=== PATIENT | male | born 1935 | race Caucasian/White ===

== ENCOUNTER 2016-08-16 15:11 | Inpatient (IN) | payer OTHER ==
[~2016-08-16] VITALS: Ht 175.3 cm; Wt 58.0 kg
--- NOTE | 2016-08-16 16:22 | DIAGNOSTIC IMAGING REPORT ---
PROCEDURE: XR CHEST 2 VIEW INDICATION: SHORTNESS OF BREATH TECHNIQUE: PA and lateral views. COMPARISON: None. FINDINGS: New left lower lobe infiltrate and pleural effusion. Heart and mediastinum are normal. Thorax is normal. IMPRESSION: 1. New left lower lobe infiltrate and pleural effusion.
--- NOTE | 2016-08-16 17:18 | ED CLINICAL REPORT ---
Clinical Report - Physicians/Mid Levels [facility] [address] [place] [address] 08/16/2016 15:11 Patient: AILEEN CAMPBELL Time Seen: 15:22. Arrived- By private vehicle. Historian- patient and family. HISTORY OF PRESENT ILLNESS Chief Complaint: DYSPNEA and WEAKNESS. This started several weeks ago and is still present. It was gradual in onset and has been waxing/waning. At its maximum, severity described as moderate. When seen in the E.D., severity described as moderate. Modifying factors- worsened by movement. Relieved by rest. The patient has had fatigue and generalized weakness. Similar symptoms previously: Recent medical care: The patient was seen recently at another facility in a clinic. REVIEW OF SYSTEMS No fever, sore throat, sinus drainage, cough or difficulty breathing. No chest pain, abdominal pain, nausea, vomiting or diarrhea. No black stools, bloody stools, difficulty with urination, skin rash or back pain. No headache or blackouts. The patient has had moderate difficulty with ambulation. It has been associated with weakness in both legs. All systems otherwise negative, except as recorded above. PAST HISTORY Primary physician ([facility]). PROBLEMS: Back Pain. Hypertension. Hyperlipidemia. Osteoporosis. Emphysema. COPD - Chronic Obstructive Pulmonary Disease. Fx vertebrae. SURGERIES: Prostatectomy. Tonsillectomy & Adenoidectomy. No history of diabetes mellitus. Surgeries: Lung surgery (RUL wedge resection on 09/03/2013). Medications: Amlodipine Besy-Benazepril HCl Oral 5/10 mg, daily. AREDS 2 OPTH. Calcium. Fish Oil. HCTZ 25 mg q day. Potassium Chloride Oral 10 meq, daily. Pravachol Oral 20 mg, daily. Pravastatin Sodium Oral 20 mg, daily. Vitamin B-12 Oral. Vitamin D3. Advair Diskus Inhalation. Allergies: None. SOCIAL HISTORY Smoker- current status unknown. No alcohol use or drug use. ADDITIONAL NOTES The nursing notes have been reviewed. PHYSICAL EXAM Vital Signs: 08/16/2016 15:21 BP: 126/74. HR: 79. RR: 18. O2 saturation: 94%. Temp: 97.8 F. Appearance: Alert. Patient in mild distress. Eyes: Eyes normal inspection. No scleral icterus or pale conjunctivae. ENT: Dry mucous membranes present. No pharyngeal erythema or tonsillar exudate. Neck: Normal inspection. Neck supple. CVS: Normal heart rate and rhythm. Heart sounds normal. Pulses normal. Respiratory: No respiratory distress. Breath sounds normal. Abdomen: No visible injury. Soft and nontender. No mass. Back: Normal inspection. Skin: Skin warm and dry. Normal skin color. Abnormal skin turgor. Extremities: Extremities exhibit normal ROM. No lower extremity edema. Neuro: Oriented X 3. No motor deficit. LABS, X-RAYS, AND EKG EKG: EKG time: (16:28). Normal sinus rhythm. Rate: 70. Short MARILOU (with unusual p-wave axsis). RBBB. Nondiagnostic Q waves in lead V2. Non-specific ST segment / T wave abnormalities. The study has been interpreted contemporaneously by me. The EKG appears to be a good tracing. Chest X-ray: (IMPRESSION: 1. New left lower lobe infiltrate and pleural effusion.). Views: PA and lateral. Technique: good. The X-rays were interpreted contemporaneously by me. Laboratory Tests: UA-Culture if indicated: (STEPHANIA: 08/16/2016 16:00) ( MsgRcvd 08/16/2016 16:28) Final results Test Result Flag Units (Reference) URINE COLOR YELLOW URINE APPEARANCE CLEAR URINE GLUCOSE 3+ (NEGATIVE) URINE BILIRUBIN NEGATIVE (NEGATIVE) URINE KETONE NEGATIVE (NEGATIVE) URINE SPECIFIC GRAVITY 1.015 (1.010-1.030) URINE PH 6.0 (5.0-8.0) URINE PROTEIN NEGATIVE (NEGATIVE) URINE UROBILINOGEN 0.2 EU/dL (0.2-1.0) URINE NITRITE NEGATIVE (NEGATIVE) URINE BLOOD TRACE-INTACT (NEGATIVE) URINE LEUK ESTERASE NEGATIVE (NEGATIVE) URINE RBC 0-1 rbc/hpf (0-1) URINE WBC 0-1 wbc/hpf (0-1) URINE EPITHELIAL CELLS RARE EPI/hpf (0-5) URINE BACTERIA NONE SEEN (NONE SEEN) URINE COMMENT CULT NOT INDICATED URINE CULTURES ARE SET-UP BASED ON THE FOLLOWING CRITERIA:POSITIVE NITRITEPOSITIVE LEUKOCYTE ESTERASEGREATER THAN 10 WHITE BLOOD CELLSMODERATE (2+) OR GREATER BACTERIA CBC w Diff: (STEPHANIA: 08/16/2016 15:45) ( [facility] 08/16/2016 16:00) Final results Test Result Flag Units (Reference) WHITE BLOOD COUNT 9.5 K/uL (4.5-11.5) RED BLOOD COUNT 3.84 L M/uL (4.50-5.90) HEMOGLOBIN 12.6 L gm/dL (13.5-17.5) HEMATOCRIT 37.8 L % (41.0-53.0) MEAN CELL VOLUME 99 fL (80-100) MEAN CORPUSCULAR HGB 33 pg (26-34) MEAN CORPUSCULAR HGB CONC 33 g/dL (31-37) RED CELL DISTRIBUTION WIDTH 14.3 % (11.6-14.8) PLATELET COUNT 195 K/uL (150-400) NEUTROPHIL % 77.6 H % (50-75) LYMPH % 17.7 L % (25-40) MONO % 4.3 % (3-14) EOSINOPHIL % 0.1 % (0-4) BASOPHIL % 0.3 % (0-2) PT with INR: (STEPHANIA: 08/16/2016 15:45) ( [facility] 08/16/2016 16:22) Final results Test Result Flag Units (Reference) INR 1.2 (0.8-1.2) Low Intensity Therapy: INR 1.5-2.0 PT range 18.5-23.1Mod.Intensity Therapy: INR 2.0-3.0 PT range 23.1-31.5High Intensity Therapy: INR 2.5-3.5 PT range 27.4-35.5High Intensity Therapy 2: INR 3.0-4.0 PT range 31.5-39.3 BNP: (STEPHANIA: 08/16/2016 15:45) ( [facility] 08/16/2016 16:37) Final results Test Result Flag Units (Reference) B-TYPE NATRIURETIC PEPTIDE 344 H pg/ml (5-100) CHEM 13 PANEL: (STEPHANIA: 08/16/2016 15:45) ( MsgRcvd 08/16/2016 16:36) Final results Test Result Flag Units (Reference) GLUCOSE 411 H mg/dL (70-110) BUN 50 H mg/dL (7-18) CREATININE 1.5 H mg/dL (0.6-1.3) Estimated GFR 47.86 mL/min Estimated GFR- 58.01 mL/min Note: Persistent reduction over 3 months in eGFR<60 mL/min/1.73 m2 defines CKD. Patients with eGFR values>=60 mL/min/1.73 m2 may also have CKD if evidence ofpersistent proteinuria. Additional information may be foundat [email or web address].org. SODIUM 131 L mmol/L (136-145) POTASSIUM 4.2 mmol/L (3.5-5.1) CHLORIDE 96 L mmol/L (98-107) CARBON DIOXIDE 32 mmol/L (21-32) CALCIUM 12.8 *H mg/dL (8.5-10.1) CRITICAL RESULTS CALLEDCalled to GENEVIEVE MANCILLA,ER 08/16/16 1635Were 2 patient identifiers used? YWas the result read back? Y TOTAL PROTEIN 9.9 H g/dL (6.4-8.2) ALBUMIN 2.6 L g/dL (3.3-5.0) BILIRUBIN, TOTAL 0.3 mg/dL (0.0-1.0) ALKALINE PHOSPHATASE 55 U/L (46-116) AST (SGOT) 28 U/L (15-37) ALT (SGPT) 38 U/L (12-78) MAGNESIUM 2.1 mg/dL (1.8-2.4) AMYLASE 32 U/L (25-115) CPK 47 U/L (24-260) TROPONIN I <0.05 ng/mL (0.00-1.5) TROPONIN REFERENCE RANGE:<0.1 NEGATIVE0.1-1.5 INDETERMINANT>1.5 POSITIVE Rapid Influenza Screen: (STEPHANIA: 08/16/2016 15:45) ( MsgRcvd 08/16/2016 16:06) Final results SPECIMEN DESCRIPTION: [employer] SWAB Test Result Flag Units (Reference) RAPID INFLUENZA SCREEN DATE: 08/16/16 INFLUENZA A: NEGATIVE SCREEN FOR INFLUENZA A INFLUENZA B: NEGATIVE SCREEN FOR INFLUENZA B Type & Screen: (STEPHANIA: 08/16/2016 15:45) ( TngRcvd 08/16/2016 16:48) Final results Test Result Flag Units (Reference) PATIENT BLOOD TYPE A Positive Above is a corrected result. Previously reported on ( [facility] 08/16/2016 16:43) as: PATIENT BLOOD TYPE A Positive ANTIBODY SCREEN NEGATIVE . Pulse Oximetry: 08/16/2016 15:21 O2 saturation: 94%. (FIO2 - room air). Interpretation: hypoxemia. PROGRESS AND PROCEDURES Course of Care: Normal Saline 1 liter IVPB given. Azithromycin 500 mg PO given. Regular Insulin 8 units subQ given. Patient is stable. Physical exam findings are improved. Symptoms better. Discussed case with hospitalist, (Arnulfo call placed 17:30). Reviewed test results. Agreed upon treatment plan. Health care provider will see patient in ED. Patient/family counseled. Old ED records reviewed. Transition orders written. Disposition: Observation in Acute Care. Condition: stable and improved. CLINICAL IMPRESSION Moderate dehydration. 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 No coma. Moderate hypercalcemia. Mild hyponatremia. Possible bacterial pneumonia. Vital signs recorded and reviewed; empiric antibiotics given in the ED. (Electronically signed by Candido Peacock DO 08/16/2016 21:28)
--- NOTE | 2016-08-16 17:18 | ED NURSING NOTES ---
Clinical Report - Nurses [facility] [address] [place] [address] 08/16/2016 15:11 Patient: AILEEN CAMPBELL TRIAGE Triage time 15:21. Acuity: LEVEL 3. Chief Complaint: (weakness). 15:08/16/16. 15:08/16/16. Alert. No acute distress. ESHA COMA SCORE: [place] Coma Scale: 15- eyes open spontaneously (4); best verbal response- oriented x 4 (5); best motor response- obeys commands (6). --15:32 Chuy Cruz R.N. 15:08/16/16. BP: 126/74. HR: 79. RR: 18. O2 saturation: 94% on nasal cannula at 2 liters/minute. Temp: 97.8 F (oral). Additional comments: On oxygen from home. --15:32 Chuy Cruz R.N. Weight: 55.3 kg stated. Height/Length: 69 inches Per Patient. BMI: 18. --15:22 Chuy Cruz R.N. Medications Advair Diskus Inhalation. --15:24 Chuy Cruz R.N. Amlodipine Besy-Benazepril HCl Oral 5/10 mg, daily. AREDS 2 OPTH. Calcium. Fish Oil. HCTZ 25 mg q day. Potassium Chloride Oral 10 meq, daily. Pravachol Oral 20 mg, daily. Pravastatin Sodium Oral 20 mg, daily. Vitamin B-12 Oral. Vitamin D3. --15:24 Chuy Cruz R.N. Medication/allergy information source: the patient and patient's family. --15:32 Chuy Cruz R.N. Allergies None. --15:24 Chuy Cruz R.N. History Arrived by private vehicle. Historian: patient. Accompanied by family. Primary physician ([facility]). 15:08/16/16. ( "For a few weeks"). Treatment A/C TECH: None. PAST MEDICAL HX: Immunizations not up to date. SOCIAL HX: Former smoker (quit 1993). No alcohol use or drug use. No infectious disease exposure. ABUSE ASSESSMENT: No report of abuse. --15:32 Chuy Cruz R.N. PAST MEDICAL HX: Immunizations: up-to-date. --15:32 Chuy Cruz R.N. PROBLEMS: Back Pain. Hypertension. Hyperlipidemia. Osteoporosis. Emphysema. COPD - Chronic Obstructive Pulmonary Disease. Fx vertebrae. --15:24 Chuy Cruz R.N. ADDITIONAL SURGERIES: Prostatectomy. Tonsillectomy & Adenoidectomy. --15:25 Chuy Cruz R.N. Assessment 15:08/16/16. He states feels the same. --15:32 Chuy Cruz R.N. Interventions 15:08/16/16. 15:08/16/16. ID and allergy band on patient. To treatment room. --15:32 Chuy Cruz R.N. PHYSICAL ASSESSMENT 15:08/16/16. To room via wheelchair. GENERAL / NEURO / PSYCH: Alert. Oriented X 4. RESPIRATORY: Mild respiratory distress. The patient can speak a few words at a time. CVS: Capillary refill less than 2 seconds. SKIN: Skin is warm and dry. --15:25 Chuy Cruz R.N. NURSING PROGRESS NOTES 15:08/16/16. The plan of care for this patient has been created. Oxygen administered by nasal cannula at 2 liters. panel monitor, pulse oximeter and NIBP monitor placed on patient. Patient gowned. Head of bed elevated. Reassurance given. Two patient identifiers checked. Call light placed in reach. Side rails up x 2. Bed placed in lowest position. Brakes of bed on. Brakes of chair on. --15:25 Chuy Cruz R.N. 15:08/16/16. Patient ready for evaluation- chart flagged. --15:26 Chuy Cruz R.N. 15:51 08/16/2016 Site #1 started via IV in the left forearm with an 18g angiocath, with aseptic technique and good blood return; one attempt. Blood drawn: rainbow set. Labeled in the presence of the patient and sent to the lab. Saline lock flushed with 10 mL saline. --15:51 Chuy Cruz R.N. 15:51 08/16/2016 Started bag #1 1000 mL IV Fluids IV NS (Saline); at 1000 mL/hr over 30 minute(s) via site #1. Allergies verified and confirmed 5 rights. IV patency established. IV site checked: no pain, redness, or swelling. IV flushed thoroughly pre- and post-medication administration. Completed per protocol. --15:51 Chuy Cruz R.N. 15:52 08/16/16. Patient ID band checked for patient name and birthdate: patient confirmed. Flu swab obtained by RN via nasal swab. Labeled in the presence of the patient and sent to lab. --15:52 Chuy Cruz R.N. 15:56 08/16/16. ( X-ray completed). --15:56 Chuy Cruz R.N. 16:12 08/16/16. ( Assisted to void, urine sent). --16:12 Chuy Cruz R.N. 16:13 08/16/16. Patient ID band checked for patient name and birthdate. Instructions provided to collect clean catch urine and patient verbalized understanding. Clean catch urine collected with return of clear urine; sample sent to lab for urinalysis and culture. Specimen labeled in the presence of the patient. --16:13 Chuy Cruz R.N. 16:13 08/16/16. Cardiac rhythm: normal sinus rhythm. --16:13 Chuy Cruz R.N. EKG time: (16:28). EKG was performed by a tech and shown to the ED physician. --16:35 Jazmyn Marie 16:36 08/16/16. Critical value relayed to ED by Lab. Critical value received by Chuy VALLEJO. Calcium: 12.8. Critical value read back. Verified lab result and patient ID. ED physician notifed of critical value. ED physician notified. --16:36 Chuy Cruz R.N. 17:08 08/16/16. Cardiac rhythm: normal sinus rhythm. --17:08 Chuy Cruz R.N. 17:07 08/16/16. BP: 127/72. HR: 71. RR: 14. O2 saturation: 97% on nasal cannula at 2 liters/minute. --17:08 Chuy Cruz R.N. 17:11 08/16/2016 IV Fluids IV NS via IV site #1 Rate Changed: bag #1 decreased to 250 mL/hr via IV pump. IV patency established. IV site checked: no pain, redness, or swelling. IV flushed thoroughly. Confirmed 5 Rights. --17:11 Chuy Cruz R.N. 17:30 08/16/2016 Insulin Reg Subcutaneous 8 unit given. Given in the right upper arm. Allergies verified and confirmed 5 rights. (Double verified with karime VALLEJO, Sree Leigh RN). --17:30 Chuy Cruz R.N. 17:38 08/16/2016 Calcitonin 200 units * IM 200 units Right ventral Glut IM --17:39 Chuy Cruz R.N. 17:51 08/16/2016 Azithromycin PO 500 mg given. Allergies verified and confirmed 5 rights. --17:52 Chuy Cruz R.N. 17:52 08/16/16. ( Admitting MD at bedside). --17:52 Chuy Cruz R.N. 18:40 08/16/2016 Site #[address] upon admission; patent. --18:40 Chuy Cruz R.N. 18:40 08/16/2016 IV Fluids IV NS Discontinued: bag #1 infused upon admission. Total amount infused: 1000 mL. IV patency established. IV site checked: no pain, redness, or swelling. IV flushed thoroughly. --18:40 Chuy Cruz R.N. DISPOSITION / DISCHARGE 17:53 08/16/16. Bed requested, pending. Patient's personal items include: glasses, sweat pants, all other belongings given to patients family. --17:53 Chuy Cruz R.N. 18:35 08/16/16. Cardiac rhythm: normal sinus rhythm. Condition at departure: improved. The goals identified in the patient's plan of care were met. Transported via stretcher by transport team with IV and O2. Report was given. Report included patient's care, treatment, medications, reviewed medication reconcilliation, and condition (including any recent changes or anticipated changes). All questions were answered. Report was acknowledged and care was transferred. (GENEVIEVE Agrawal). Bed obtained. FALL RISK ASSESSMENT: Fall risk assessment completed. No fall risk identified. --18:35 Chuy Cruz R.N. 18:34 08/16/16. BP: 127/71. HR: 71. RR: 20. O2 saturation: 97% on nasal cannula at 2 liters/minute. Temp: 98.1 F (oral). --18:35 Chuy Cruz R.N. Departure time: 18:45. --18:45 Chuy Cruz R.N. Locked/Released at 08/16/2016 18:45 by Chuy Cruz R.N.
--- NOTE | 2016-08-16 17:18 | ED CLINICAL REPORT ---
Clinical Report - Physicians/Mid Levels [address] [place] [address] 08/16/2016 15:11 Patient: AILEEN CAMPBELL Time Seen: 15:22. Arrived- By private vehicle. Historian- patient and family. HISTORY OF PRESENT ILLNESS Chief Complaint: DYSPNEA and WEAKNESS. This started several weeks ago and is still present. It was gradual in onset and has been waxing/waning. At its maximum, severity described as moderate. When seen in the E.D., severity described as moderate. Modifying factors- worsened by movement. Relieved by rest. The patient has had fatigue and generalized weakness. Similar symptoms previously: Recent medical care: The patient was seen recently at another facility in a clinic. REVIEW OF SYSTEMS No fever, sore throat, sinus drainage, cough or difficulty breathing. No chest pain, abdominal pain, nausea, vomiting or diarrhea. No black stools, bloody stools, difficulty with urination, skin rash or back pain. No headache or blackouts. The patient has had moderate difficulty with ambulation. It has been associated with weakness in both legs. All systems otherwise negative, except as recorded above. PAST HISTORY Primary physician ([facility]). PROBLEMS: Back Pain. Hypertension. Hyperlipidemia. Osteoporosis. Emphysema. COPD - Chronic Obstructive Pulmonary Disease. Fx vertebrae. SURGERIES: Prostatectomy. Tonsillectomy & Adenoidectomy. No history of diabetes mellitus. Surgeries: Lung surgery (RUL wedge resection on 09/03/2013). Medications: Amlodipine Besy-Benazepril HCl Oral 5/10 mg, daily. AREDS 2 OPTH. Calcium. Fish Oil. HCTZ 25 mg q day. Potassium Chloride Oral 10 meq, daily. Pravachol Oral 20 mg, daily. Pravastatin Sodium Oral 20 mg, daily. Vitamin B-12 Oral. Vitamin D3. Advair Diskus Inhalation. Allergies: None. SOCIAL HISTORY Smoker- current status unknown. No alcohol use or drug use. ADDITIONAL NOTES The nursing notes have been reviewed. PHYSICAL EXAM Vital Signs: 08/16/2016 15:21 BP: 126/74. HR: 79. RR: 18. O2 saturation: 94%. Temp: 97.8 F. Appearance: Alert. Patient in mild distress. Eyes: Eyes normal inspection. No scleral icterus or pale conjunctivae. ENT: Dry mucous membranes present. No pharyngeal erythema or tonsillar exudate. Neck: Normal inspection. Neck supple. CVS: Normal heart rate and rhythm. Heart sounds normal. Pulses normal. Respiratory: No respiratory distress. Breath sounds normal. Abdomen: No visible injury. Soft and nontender. No mass. Back: Normal inspection. Skin: Skin warm and dry. Normal skin color. Abnormal skin turgor. Extremities: Extremities exhibit normal ROM. No lower extremity edema. Neuro: Oriented X 3. No motor deficit. LABS, X-RAYS, AND EKG EKG: EKG time: (16:28). Normal sinus rhythm. Rate: 70. Short MARILOU (with unusual p-wave axsis). RBBB. Nondiagnostic Q waves in lead V2. Non-specific ST segment / T wave abnormalities. The study has been interpreted contemporaneously by me. The EKG appears to be a good tracing. Chest X-ray: (IMPRESSION: 1. New left lower lobe infiltrate and pleural effusion.). Views: PA and lateral. Technique: good. The X-rays were interpreted contemporaneously by me. Laboratory Tests: UA-Culture if indicated: (STEPHANIA: 08/16/2016 16:00) ( MsgRcvd 08/16/2016 16:28) Final results Test Result Flag Units (Reference) URINE COLOR YELLOW URINE APPEARANCE CLEAR URINE GLUCOSE 3+ (NEGATIVE) URINE BILIRUBIN NEGATIVE (NEGATIVE) URINE KETONE NEGATIVE (NEGATIVE) URINE SPECIFIC GRAVITY 1.015 (1.010-1.030) URINE PH 6.0 (5.0-8.0) URINE PROTEIN NEGATIVE (NEGATIVE) URINE UROBILINOGEN 0.2 EU/dL (0.2-1.0) URINE NITRITE NEGATIVE (NEGATIVE) URINE BLOOD TRACE-INTACT (NEGATIVE) URINE LEUK ESTERASE NEGATIVE (NEGATIVE) URINE RBC 0-1 rbc/hpf (0-1) URINE WBC 0-1 wbc/hpf (0-1) URINE EPITHELIAL CELLS RARE EPI/hpf (0-5) URINE BACTERIA NONE SEEN (NONE SEEN) URINE COMMENT CULT NOT INDICATED URINE CULTURES ARE SET-UP BASED ON THE FOLLOWING CRITERIA:POSITIVE NITRITEPOSITIVE LEUKOCYTE ESTERASEGREATER THAN 10 WHITE BLOOD CELLSMODERATE (2+) OR GREATER BACTERIA CBC w Diff: (STEPHANIA: 08/16/2016 15:45) ( [facility] 08/16/2016 16:00) Final results Test Result Flag Units (Reference) WHITE BLOOD COUNT 9.5 K/uL (4.5-11.5) RED BLOOD COUNT 3.84 L M/uL (4.50-5.90) HEMOGLOBIN 12.6 L gm/dL (13.5-17.5) HEMATOCRIT 37.8 L % (41.0-53.0) MEAN CELL VOLUME 99 fL (80-100) MEAN CORPUSCULAR HGB 33 pg (26-34) MEAN CORPUSCULAR HGB CONC 33 g/dL (31-37) RED CELL DISTRIBUTION WIDTH 14.3 % (11.6-14.8) PLATELET COUNT 195 K/uL (150-400) NEUTROPHIL % 77.6 H % (50-75) LYMPH % 17.7 L % (25-40) MONO % 4.3 % (3-14) EOSINOPHIL % 0.1 % (0-4) BASOPHIL % 0.3 % (0-2) PT with INR: (STEPHANIA: 08/16/2016 15:45) ( [facility] 08/16/2016 16:22) Final results Test Result Flag Units (Reference) INR 1.2 (0.8-1.2) Low Intensity Therapy: INR 1.5-2.0 PT range 18.5-23.1Mod.Intensity Therapy: INR 2.0-3.0 PT range 23.1-31.5High Intensity Therapy: INR 2.5-3.5 PT range 27.4-35.5High Intensity Therapy 2: INR 3.0-4.0 PT range 31.5-39.3 BNP: (STEPHANIA: 08/16/2016 15:45) ( [facility] 08/16/2016 16:37) Final results Test Result Flag Units (Reference) B-TYPE NATRIURETIC PEPTIDE 344 H pg/ml (5-100) CHEM 13 PANEL: (STEPHANIA: 08/16/2016 15:45) ( MsgRcvd 08/16/2016 16:36) Final results Test Result Flag Units (Reference) GLUCOSE 411 H mg/dL (70-110) BUN 50 H mg/dL (7-18) CREATININE 1.5 H mg/dL (0.6-1.3) Estimated GFR 47.86 mL/min Estimated GFR- 58.01 mL/min Note: Persistent reduction over 3 months in eGFR<60 mL/min/1.73 m2 defines CKD. Patients with eGFR values>=60 mL/min/1.73 m2 may also have CKD if evidence ofpersistent proteinuria. Additional information may be foundat www.kidney.org. SODIUM 131 L mmol/L (136-145) POTASSIUM 4.2 mmol/L (3.5-5.1) CHLORIDE 96 L mmol/L (98-107) CARBON DIOXIDE 32 mmol/L (21-32) CALCIUM 12.8 *H mg/dL (8.5-10.1) CRITICAL RESULTS CALLEDCalled to GENEVIEVE MANCILLA,ER 08/16/16 1635Were 2 patient identifiers used? YWas the result read back? Y TOTAL PROTEIN 9.9 H g/dL (6.4-8.2) ALBUMIN 2.6 L g/dL (3.3-5.0) BILIRUBIN, TOTAL 0.3 mg/dL (0.0-1.0) ALKALINE PHOSPHATASE 55 U/L (46-116) AST (SGOT) 28 U/L (15-37) ALT (SGPT) 38 U/L (12-78) MAGNESIUM 2.1 mg/dL (1.8-2.4) AMYLASE 32 U/L (25-115) CPK 47 U/L (24-260) TROPONIN I <0.05 ng/mL (0.00-1.5) TROPONIN REFERENCE RANGE:<0.1 NEGATIVE0.1-1.5 INDETERMINANT>1.5 POSITIVE Rapid Influenza Screen: (STEPHANIA: 08/16/2016 15:45) ( MsgRcvd 08/16/2016 16:06) Final results SPECIMEN DESCRIPTION: [employer] SWAB Test Result Flag Units (Reference) RAPID INFLUENZA SCREEN DATE: 08/16/16 INFLUENZA A: NEGATIVE SCREEN FOR INFLUENZA A INFLUENZA B: NEGATIVE SCREEN FOR INFLUENZA B Type & Screen: (STEPHANIA: 08/16/2016 15:45) ( OkgRcvd 08/16/2016 16:48) Final results Test Result Flag Units (Reference) PATIENT BLOOD TYPE A Positive Above is a corrected result. Previously reported on ( [facility] 08/16/2016 16:43) as: PATIENT BLOOD TYPE A Positive ANTIBODY SCREEN NEGATIVE . Pulse Oximetry: 08/16/2016 15:21 O2 saturation: 94%. (FIO2 - room air). Interpretation: hypoxemia. PROGRESS AND PROCEDURES Course of Care: Normal Saline 1 liter IVPB given. Azithromycin 500 mg PO given. Regular Insulin 8 units subQ given. Patient is stable. Physical exam findings are improved. Symptoms better. Discussed case with hospitalist, (Arnulfo call placed 17:30). Reviewed test results. Agreed upon treatment plan. Health care provider will see patient in ED. Patient/family counseled. Old ED records reviewed. Transition orders written. Disposition: Observation in Acute Care. Condition: stable and improved. CLINICAL IMPRESSION Moderate dehydration. 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 No coma. Moderate hypercalcemia. Mild hyponatremia. Possible bacterial pneumonia. Vital signs recorded and reviewed; empiric antibiotics given in the ED. (Electronically signed by Candido Peacock DO 08/16/2016 21:28)
--- NOTE | 2016-08-16 17:18 | ED ORDER SUMMARY ---
..... Patient: AILEEN CAMPBELL OrderSheet [facility] VisitID: [id number] [address] [place] [address] 81y, M Registration Date/Time: 08/16/2016 ORDER SHEET Weight: 55.3 kg (stated) Allergies: None GENERAL ORDERS: Chest 2V Urgent (15:08/16/2016 PHutchinson DO) (Ack 15:33 LTapper) (15:56 JBoardley R.N.) Event Marketing Intern (Continuous) (15:08/16/2016 PHnmchinson DO) (15:32 JBoardley R.N.) UA-Culture if indicated Urgent ([facility]/2016 [facility] (Ack 15:33 LTapper) (16:12 JBoardley R.N.) Cardiac Panel Stat (:08/16/2016 [facility]) (Ack 15:33 LTapper) (15:48 JBoardley R.N.) BNP Urgent (15:08/16/2016 PHutchinson DO) (Ack 15:33 LTapper) (15:48 JBoardley R.N.) Amylase Urgent (15:08/16/2016 PHutchinson DO) (Ack 15:33 LTapper) (15:48 JBoardley R.N.) PT with INR Urgent (15:08/16/2016 PHnmchinson DO) (Ack 15:33 LTapper) (15:48 JBoardley R.N.) Type & Screen Urgent (15:08/16/2016 PHnmchinson DO) (Ack 15:33 LTapper) (15:48 JBoardley R.N.) Oxygen (2 L/min) (NC) (15:08/16/2016 PHnmchinson DO) (15:32 JBoardley R.N.) (Cancelled: Other15:34 PHutchinson DO) Pulse oximeter (15:08/16/2016 PHnmchinson DO) (15:32 JBoardley R.N.) EKG - ER Stat (15:08/16/2016 [facility]) (Ack 15:33 LTapper) (15:48 JBoardley R.N.) Vitals (15:30 08/16/2016 [facility]) (15:32 JBoardley R.N.) Rapid Influenza Screen (Nasal Pharyngeal) (LACQUER POLISHER swab) Urgent (15:34 08/16/2016 [facility]) (Ack 15:41 LTapper) (15:50 JBoardley R.N.) - (parathyroid hormone level) (16:51 08/16/2016 [facility]) (Ack 17:13 LTapper) (17:39 JBoardley R.N.) MEDICATION ORDERS: Insulin Reg Subcut 8 units (HIGH ALERT MEDICATION, NOW) (17:19 08/16/2016 [facility]) (Ack 17:23 JBoardley R.N.) (17:30 JBoardley R.N.) - (Calcitonin 200 units IM) (17:20 08/16/2016 [facility]) (Ack 17:23 JBoardley R.N.) (17:39 JBoardley R.N.) Azithromycin PO 500 mg (NOW) (17:46 08/16/2016 [facility]) (Ack 17:50 JBoardley R.N.) (17:52 JBoardley R.N.) IV FLUIDS: IV NS : initial bolus 500 mL (1000 mL/hr), then 250 mL/hr for X4 (NOW) (15:30 08/16/2016 [facility]) (Ack 15:32 JBoardley R.N.) (15:51 JBoardley R.N.) ORDER SHEET NOTES: [Electronically signed by Chuy Cruz R.N. (18:45 08/16/2016)] [Electronically signed by Candido Peacock DO (21:28 08/16/2016)] [Electronically locked/signed by Chuy Cruz R.N. (18:45 08/16/2016)]
--- NOTE | 2016-08-16 17:18 | ED ORDER SUMMARY ---
..... Patient: AILEEN CAMPBELL OrderSheet [facility] VisitID: [id number] [address] [place] [address] 81y, M Registration Date/Time: 08/16/2016 ORDER SHEET Weight: 55.3 kg (stated) Allergies: None GENERAL ORDERS: Chest 2V Urgent (15:08/16/2016 PHutchinson DO) (Ack 15:33 LTapper) (15:56 JBoardley R.N.) Electrician'S Assistant (Continuous) (15:08/16/2016 PHncchinson DO) (15:32 JBoardley R.N.) UA-Culture if indicated Urgent (15:08/16/2016 [facility]) (Ack 15:33 LTapper) (16:12 JBoardley R.N.) Cardiac Panel Stat (:08/16/2016 [facility] (Ack 15:33 LTapper) (15:48 JBoardley R.N.) BNP Urgent (15:08/16/2016 PHutchinson DO) (Ack 15:33 LTapper) (15:48 JBoardley R.N.) Amylase Urgent (15:08/16/2016 PHutchinson DO) (Ack 15:33 LTapper) (15:48 JBoardley R.N.) PT with INR Urgent (15:08/16/2016 PHncchinson DO) (Ack 15:33 LTapper) (15:48 JBoardley R.N.) Type & Screen Urgent (15:08/16/2016 PHncchinson DO) (Ack 15:33 LTapper) (15:48 JBoardley R.N.) Oxygen (2 L/min) (NC) (15:08/16/2016 PHncchinson DO) (15:32 JBoardley R.N.) (Cancelled: Other15:34 PHutchinson DO) Pulse oximeter (15:08/16/2016 PHncchinson DO) (15:32 JBoardley R.N.) EKG - ER Stat (15:08/16/2016 [facility]) (Ack 15:33 LTapper) (15:48 JBoardley R.N.) Vitals (15:30 08/16/2016 [facility]) (15:32 JBoardley R.N.) Rapid Influenza Screen (Nasal Pharyngeal) (HOOP MACHINE OPERATOR swab) Urgent (15:34 08/16/2016 [facility]) (Ack 15:41 LTapper) (15:50 JBoardley R.N.) - (parathyroid hormone level) (16:51 08/16/2016 [facility]) (Ack 17:13 LTapper) (17:39 JBoardley R.N.) MEDICATION ORDERS: Insulin Reg Subcut 8 units (HIGH ALERT MEDICATION, NOW) (17:19 08/16/2016 [facility]) (Ack 17:23 JBoardley R.N.) (17:30 JBoardley R.N.) - (Calcitonin 200 units IM) (17:20 08/16/2016 [facility]) (Ack 17:23 JBoardley R.N.) (17:39 JBoardley R.N.) Azithromycin PO 500 mg (NOW) (17:46 08/16/2016 [facility]) (Ack 17:50 JBoardley R.N.) (17:52 JBoardley R.N.) IV FLUIDS: IV NS : initial bolus 500 mL (1000 mL/hr), then 250 mL/hr for X4 (NOW) (15:30 08/16/2016 [facility]) (Ack 15:32 JBoardley R.N.) (15:51 JBoardley R.N.) ORDER SHEET NOTES: [Electronically signed by Chuy Cruz R.N. (18:45 08/16/2016)] [Electronically signed by Candido Peacock DO (21:28 08/16/2016)] [Electronically locked/signed by Chuy Cruz R.N. (18:45 08/16/2016)]
[2016-08-16] MEDS ORDERED: ADVAIR DISKUS INH (18:15)
[2016-08-16] MEDS ORDERED: AMLODIPINE BESY1 CA1 (18:16)
[2016-08-16] MEDS ORDERED: CALCIUM CARBON500 MG PO (18:17)
[2016-08-16] MEDS ORDERED: HYDROCHLOROTHIA25 MG PO (18:17)
[2016-08-16] MEDS ORDERED: FISH OIL306 MG PO (18:17)
[2016-08-16] MEDS ORDERED: KLOR-CON 1010 MEQ PO (18:18)
[2016-08-16] MEDS ORDERED: PRAVACHOL20 MG (18:19)
[2016-08-16] MEDS ORDERED: VITAMIN D-31000 UNIT PO (18:20)
[2016-08-16] MEDS ORDERED: VITAMIN B 12100 MCG (18:20)
[2016-08-16 19:07] VITALS: BP 120/69
--- NOTE | 2016-08-16 19:59 | History & Physical Report ---
Information Source Information Source: Self, Spouse/Partner Reliability: Good History Chief Complaint LETHARGY History of Present Illness Patient is a 81 year old male with a pmh of copd, osteoperosis, and hypertension that is presenting with a two month history of lethargy. Patient had been around his usual state of health in the holiday time, however since then the patient has been having multiple upper respiratory infections which has been causing him to be very bed ridden. The patient got such a severe cough that he developed two cracked ribs as a result. Patient has been noticing that his level of energy has been decreasing steadily since then. Patient went to his physician who has been providing antibioitics but there has been no blood work recently that showed any abnormality. Patient is otherwise stable and resting comfortably. Patient History 1. Hypercalcemia 2. Dehydration Social History Pt is a former smoker quit 25 years ago, he does not drink or use illicit substances. Patient lives at home with his , is able to pefrom all his daily adls indepently. Medications and Allergies Medications Home Medications amlodopine benzapril 11/15 ca carbonate 500 vit d 3 cyanocobalin with vit b12 advair 100-50 hctz 25 mg omega 3 fatty acids pravachol 20 mg Current Medications Sig/Rocky Start time Last Medication Dose Route Stop Time Status Admin Amlodipine Besylate 5 MG DAILY 08/17 0900 AC PO Heparin Sodium 5,000 UNITS Q8HR 08/16 2200 AC (Porcine) SC Furosemide 20 MG ONCE 08/16 2000 AC PO Hydrochlorothiazide 25 MG DAILY 08/16 1948 AC PO Ondansetron HCl 4 MG Q4H PRN 08/16 1745 AC IV Sodium Chloride 1,000 ML ASDIRECTED 08/16 1745 AC 08/16 IV 1855 Allergies Coded Allergies: NKA (08/16/16) Review of Systems Constitutional Weakness. Denies: Fever, Chills, Sweats, Malaise, Other. Eyes Denies: Pain, Vision Change, Conjunctival Inflammation, Eyelid Inflammation, Redness, Other. ENT Nasal Congestion. Denies: Ear Pain, Ear Discharge, Nose Pain, Nasal Discharge, Mouth Pain, Mouth Swelling, Throat Pain, Throat Swelling, Other. Respiratory Cough, SOB w/exertion. Denies: Dry, Wheezing, Hemoptysis, Pleuritic Pain, Sputum, Other. Cardiovascular Other (chest wall pain from rib fract). Denies: Chest Pain, Palpitations, Orthopnea, PND, Edema, Light-headedness. Gastrointestinal Denies: Nausea, Vomiting, Abdominal Pain, Diarrhea, Constipation, Melena, Hematochezia, Other. Genitourinary Denies: Dysuria, Frequency, Incontinence, Hematuria, Retention, Other. Musculoskeletal Denies: Neck Pain, Shoulder Pain, Arm Pain, Back Pain, Hand Pain, Leg Pain, Foot Pain, Other. Skin Denies: Rash, Lesions, Jaundice, Bruising, Other. Neurological Denies: Weakness, Numbness, Incoordination, Change in speech, Confusion, Seizures, Other. Physical Exam Vital Signs / I&Os Vital Signs Date Time Temp Pulse Resp B/P Pulse O2 O2 Flow FiO2 Ox Delivery Rate 08/16 1907 98.1 76 24 120/69 94 Nasal 3.0 Cannula General Appearance Alert, Oriented X3, No acute distress HEENT Normal exam, PERRLA, Moist mucous membranes Lungs Clear to auscultation, Normal air movement Neck Supple Cardiovascular Regular rate and rhythm, Normal S1 and S2, pain to palpation of right side of chest wall Abdomen Soft, No tenderness, No guarding Extremities No cyanosis, No edema, Normal pulses, No tenderness, Strength = upper ext's, Strength = lower ext's Skin No Rashes, No Breakdown, No Significant Lesions Neurological Normal gait, Sensation intact, Reflexes 2+ and equal, Cranial nerves intact, Strength 5/5 x4 ext's, No lateralizing signs LAB Results Laboratory Tests 08/16 08/16 08/16 1530 1545 1545 Chemistry Plasma Sodium (136 - 145 mmol/L) 131 Plasma Potassium (3.5 - 5.1 mmol/L) 4.2 Plasma Chloride (98 - 107 mmol/L) 96 CO2 (Enzymatic) (21 - 32 mmol/L) 32 BUN (7 - 18 mg/dL) 50 Creatinine (0.6 - 1.3 mg/dL) 1.5 Est GFR ( Amer) (mL/min) 58.01 Est GFR (Non-Af Amer) (mL/min) 47.86 Glucose (70 - 110 mg/dL) 411 Plasma Calcium (8.5 - 10.1 mg/dL) 12.8 Plasma Magnesium (1.8 - 2.4 mg/dL) 2.1 Total Bilirubin (0.0 - 1.0 mg/dL) 0.3 AST (15 - 37 U/L) 28 ALT (12 - 78 U/L) 38 Alkaline Phosphatase (46 - 116 U/L) 55 Creatine Kinase (24 - 260 U/L) 47 Troponin (0.00 - 1.5 ng/mL) <0.05 B-Natriuretic Peptide (5 - 100 pg/ml) 344 Total Protein (6.4 - 8.2 g/dL) 9.9 Albumin (3.3 - 5.0 g/dL) 2.6 Amylase (25 - 115 U/L) Cancelled 32 Coagulation INR (0.8 - 1.2) 1.2 Hematology WBC (4.5 - 11.5 K/uL) 9.5 RBC (4.50 - 5.90 M/uL) 3.84 Hgb (13.5 - 17.5 gm/dL) 12.6 Hct (41.0 - 53.0 %) 37.8 MCV (80 - 100 fL) 99 MCH (26 - 34 pg) 33 RDW (11.6 - 14.8 %) 14.3 Neut % (Auto) (50 - 75 %) 77.6 Lymph % (Auto) (25 - 40 %) 17.7 [place] % (Auto) (3 - 14 %) 4.3 Eos % (Auto) (0 - 4 %) 0.1 Baso % (Auto) (0 - 2 %) 0.3 Plt Count, EDTA (150 - 400 K/uL) 195 PUBS MCHC (31 - 37 g/dL) 33 08/16 1600 Urines Urine Color YELLOW Urine Appearance CLEAR Urine pH (5.0 - 8.0) 6.0 Ur Specific [place] (1.010 - 1.030) 1.015 Urine Protein (NEGATIVE) NEGATIVE Urine Ketones (NEGATIVE) NEGATIVE Urine Blood (NEGATIVE) TRACE-INTACT Urine Nitrite (NEGATIVE) NEGATIVE Urine Bilirubin (NEGATIVE) NEGATIVE Urine Urobilinogen (0.2 - 1.0 EU/dL) 0.2 Ur Leukocyte Esterase (NEGATIVE) NEGATIVE Urine RBC (0 - 1 rbc/hpf) 0-1 Urine WBC (0 - 1 wbc/hpf) 0-1 Ur Epithelial Cells (0 - 5 EPI/hpf) RARE Urine Bacteria (NONE SEEN) NONE SEEN Urine Glucose (NEGATIVE) 3+ Urine Comment CULT NOT INDICATED Microbiology Date/Time Procedure - Status Source Growth 08/16 1545 Influenza Screen - COMP NASALPHAR Assessment and Plan Problem List 1. Hypercalcemia Plan - Pt found to have an incidental finding of hypercalcemia with no etiology - Pt takes aggressive Calcium replacement therapy for osteoperosis - has no history of mental status changes, pain, or kidney stones - Corrected calcium is 14.9 - Will began with aggressive IV hydration, calcitonin and trend calcium - will obtain pth, 1,25 dihydroxy, 25 dihydroxy - will monitor fluid in put and out take 2. Dehydration Plan - pt has evidence of dehydration from his renal labs - will resume with hydration for treatment of primary problem 3. New onset type 2 diabetes mellitus Plan - Pt has new onset diabetes - Pt has never had elevated sugars in the past and has never been told he has elevated blood sugars - will place on sliding scale coverage - will continue to trend blood sugars 4. COPD (chronic obstructive pulmonary disease) Plan - currently stable - no shortness of breath noted - will c/w regular breathing treatments 5. Hypertension Plan - Pt has been normotensive - will resume all home anti-hypertensive meds
[2016-08-16 20:34] VITALS: BP 110/65
--- NOTE | 2016-08-16 21:28 | ED DISCHARGE INSTRUCTIONS ---
Patient: AILEEN CAMPBELL General Instructions [facility] VisitID: [id number] [address] [place] [address] 81y, M Registration Date/Time: 08/16/2016 Moderate dehydration. 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 No coma. Moderate hypercalcemia. Mild hyponatremia. (Electronically signed by Candido Peacock DO 08/16/2016 21:28)
--- NOTE | 2016-08-16 21:28 | ED DISCHARGE INSTRUCTIONS ---
Patient: AILEEN CAMPBELL General Instructions [facility] VisitID: [id number] [address] [place] [address] 81y, M Registration Date/Time: 08/16/2016 Moderate dehydration. 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 No coma. Moderate hypercalcemia. Mild hyponatremia. (Electronically signed by Candido Peacock DO 08/16/2016 21:28)
--- NOTE | 2016-08-16 21:28 | ED MAR SUMMARY ---
..... Medication Administration Record [facility] [address] [place] [address] Patient: AILEEN CAMPBELL Visit ID: [id number] 81y, M Weight: 55.3 kg Height/Length: 69 in BMI: 18 ALLERGIES: None Start 15:51 08/16/2016 Chuy Cruz R.N., Stop 18:40 08/16/2016 Chuy Cruz R.N. Medication Administered: IV NS (SALINE), Dose: IV Fluids over 30 minute(s), Rate: 1000 mL/hr, Dispensed: 1000 mL bag, Site: #1 left forearm. Medication Ordered: IV NS : initial bolus 500 mL (1000 mL/hr), then 250 mL/hr for X4 (NOW). Given 17:30 08/16/2016 Chuy Cruz R.N. Medication Administered: INSULIN REG [SUBCUTANEOUS], Dose: 8 unit Subcutaneous. Medication Ordered: Insulin Reg Subcut 8 units (HIGH ALERT MEDICATION, NOW). Given 17:38 08/16/2016 Chuy Cruz R.N. Medication Administered: Calcitonin 200 units *, Dose: 200 units * IM. Medication Ordered: - (Calcitonin 200 units IM). Given 17:51 08/16/2016 Chuy Cruz R.N. Medication Administered: AZITHROMYCIN [PO], Dose: 500 mg PO. Medication Ordered: Azithromycin PO 500 mg (NOW).
--- NOTE | 2016-08-16 21:28 | ED MED RECONCILIATION SUMMARY ---
Patient: AILEEN CAMPBELL Medication Reconciliation Report [facility] VisitID: [id number] [address] [place] [address] 81y, M Registration Date/Time: 08/16/2016 Weight: 55.3 kg Height/Length: 69 in. BMI: 18.0 ALLERGIES: None The patient's Home Medications are listed below: THE FOLLOWING MEDICATIONS NEED TO BE RECONCILED: Advair Diskus Inhalation Amlodipine Besy-Benazepril HCl Oral 5/10 mg, daily AREDS 2 OPTH Calcium Fish Oil HCTZ 25 mg q day Potassium Chloride Oral 10 meq, daily Pravachol Oral 20 mg, daily Pravastatin Sodium Oral 20 mg, daily Vitamin B-12 Oral Vitamin D3 The source(s) of the original Home Medication information: patient patient's family member The following Medications were given to the patient in the Emergency Department: IV NS IV Fluids bolus 0, then 1000 mL/hr, administered: 08/16/2016 3:51:00 PM Insulin Reg [Subcutaneous] Subcutaneous 8 unit, administered: 08/16/2016 5:30:00 PM Calcitonin 200 units IM 200 units, administered: 08/16/2016 5:38:00 PM Azithromycin [PO] PO 500 mg, administered: 08/16/2016 5:51:00 PM The following Medications were prescribed to the patient: None.
--- NOTE | 2016-08-16 21:28 | ED MAR SUMMARY ---
..... Medication Administration Record [facility] [address] [place] [address] Patient: AILEEN CAMPBELL Visit ID: [id number] 81y, M Weight: 55.3 kg Height/Length: 69 in BMI: 18 ALLERGIES: None Start 15:51 08/16/2016 Chuy Cruz R.N., Stop 18:40 08/16/2016 Chuy Cruz R.N. Medication Administered: IV NS (SALINE), Dose: IV Fluids over 30 minute(s), Rate: 1000 mL/hr, Dispensed: 1000 mL bag, Site: #1 left forearm. Medication Ordered: IV NS : initial bolus 500 mL (1000 mL/hr), then 250 mL/hr for X4 (NOW). Given 17:30 08/16/2016 Chuy Cruz R.N. Medication Administered: INSULIN REG [SUBCUTANEOUS], Dose: 8 unit Subcutaneous. Medication Ordered: Insulin Reg Subcut 8 units (HIGH ALERT MEDICATION, NOW). Given 17:38 08/16/2016 Chuy Cruz R.N. Medication Administered: Calcitonin 200 units *, Dose: 200 units * IM. Medication Ordered: - (Calcitonin 200 units IM). Given 17:51 08/16/2016 Chuy Cruz R.N. Medication Administered: AZITHROMYCIN [PO], Dose: 500 mg PO. Medication Ordered: Azithromycin PO 500 mg (NOW).
--- NOTE | 2016-08-16 21:28 | ED MED RECONCILIATION SUMMARY ---
Patient: AILEEN CAMPBELL Medication Reconciliation Report [facility] VisitID: [id number] [address] [place] [address] 81y, M Registration Date/Time: 08/16/2016 Weight: 55.3 kg Height/Length: 69 in. BMI: 18.0 ALLERGIES: None The patient's Home Medications are listed below: THE FOLLOWING MEDICATIONS NEED TO BE RECONCILED: Advair Diskus Inhalation Amlodipine Besy-Benazepril HCl Oral 5/10 mg, daily AREDS 2 OPTH Calcium Fish Oil HCTZ 25 mg q day Potassium Chloride Oral 10 meq, daily Pravachol Oral 20 mg, daily Pravastatin Sodium Oral 20 mg, daily Vitamin B-12 Oral Vitamin D3 The source(s) of the original Home Medication information: patient patient's family member The following Medications were given to the patient in the Emergency Department: IV NS IV Fluids bolus 0, then 1000 mL/hr, administered: 08/16/2016 3:51:00 PM Insulin Reg [Subcutaneous] Subcutaneous 8 unit, administered: 08/16/2016 5:30:00 PM Calcitonin 200 units IM 200 units, administered: 08/16/2016 5:38:00 PM Azithromycin [PO] PO 500 mg, administered: 08/16/2016 5:51:00 PM The following Medications were prescribed to the patient: None.
[2016-08-16 23:23] VITALS: BP 103/52
[2016-08-17] VITALS (7 sets, daily range): BP systolic 94–112; BP diastolic 41–65
--- NOTE | 2016-08-17 15:33 | Progress Note ---
Subjective General Pt seen and examined, patient is still persistently weak and has increased pain. Patients calcium came down appropriately however it is still very much elevated. Patients blood sugars have been controlled with insulin. Constitutional Weakness. Denies: Fever, Chills, Sweats, Malaise, Other. Eyes Denies: Pain, Vision Change, Conjunctival Inflammation, Eyelid Inflammation, Redness, Other. Respiratory Denies: Cough, Dry, SOB w/exertion, Wheezing, Hemoptysis, Pleuritic Pain, Sputum , Other. Cardiovascular Denies: Chest Pain, Palpitations, Orthopnea, PND, Edema, Light-headedness, Other. Gastrointestinal Denies: Nausea, Vomiting, Abdominal Pain, Diarrhea, Constipation, Melena, Hematochezia, Other. Genitourinary Denies: Dysuria, Frequency, Incontinence, Hematuria, Retention, Other. Musculoskeletal Other. Denies: Foot Pain (rib wall pain ). Physical Exam Vital Signs / I&Os Vital Signs Date Time Temp Pulse Resp B/P Pulse O2 O2 Flow FiO2 Ox Delivery Rate 08/17 1433 97.7 66 16 94/62 99 Nasal 2.0 Cannula 08/17 1116 2.0 08/17 1048 98.8 68 16 99/49 100 Nasal 2.0 Cannula 08/17 1000 2.0 08/17 0657 97.5 71 18 105/64 97 Nasal 2.0 Cannula 08/17 0319 97.5 70 18 112/50 96 Nasal 2.0 Cannula 08/16 2323 98.6 67 18 103/52 99 Nasal 2.0 Cannula 08/16 2053 2.0 08/16 2034 98.4 69 20 110/65 98 Nasal 2.0 Cannula 08/16 2005 Nasal 2.0 Cannula 08/16 1907 98.1 76 24 120/69 94 Nasal 3.0 Cannula I&O 08/16 0800 08/16 1600 08/17 0000 Intake Total Output Total 750 Balance -750 General Appearance Alert, Oriented X3, No acute distress Lungs Normal exam, Clear to auscultation Neck Supple, No JVD Cardiovascular Regular rate and rhythm, Normal S1 and S2, No murmurs, gallops, rubs Abdomen Soft, No tenderness Skin No Rashes, No Breakdown, No Significant Lesions Psych/Mental Status Mental status normal LAB Results Laboratory Tests 08/17 08/17 08/17 08/17 0535 0535 0535 0535 Blood Gas Cap Ioniz Calcium Calc (3.5 - 5.2 mg/dL) 4.5 Chemistry Plasma Sodium (136 - 145 mmol/L) 138 Plasma Potassium (3.5 - 5.1 mmol/L) 3.4 Plasma Chloride (98 - 107 mmol/L) 102 CO2 (Enzymatic) (21 - 32 mmol/L) 33 BUN (7 - 18 mg/dL) 38 Creatinine (0.6 - 1.3 mg/dL) 1.2 Est GFR ( Amer) (mL/min) >60 Est GFR (Non-Af Amer) (mL/min) >60 Glucose (70 - 110 mg/dL) 193 Plasma Calcium (8.5 - 10.1 mg/dL) 11.4 11.7 Ionized Calcium Daniel Pending Plasma Magnesium (1.8 - 2.4 mg/dL) 1.9 Total Bilirubin (0.0 - 1.0 mg/dL) 0.4 AST (15 - 37 U/L) 27 ALT (12 - 78 U/L) 33 Alkaline Phosphatase (46 - 116 U/L) 50 Total Protein (6.4 - 8.2 g/dL) 8.8 8.9 Albumin (3.3 - 5.0 g/dL) 2.4 Vitamin D 25-Hydroxy Pending Vit D 1,25-Dihydroxy Pending PTH Interpretation Pending PTH Intact Pending Calcium (PTH Intact) Pending Hematology WBC (4.5 - 11.5 K/uL) 9.9 RBC (4.50 - 5.90 M/uL) 3.59 Hgb (13.5 - 17.5 gm/dL) 11.9 Hct (41.0 - 53.0 %) 35.4 MCV (80 - 100 fL) 99 MCH (26 - 34 pg) 33 RDW (11.6 - 14.8 %) 14.6 Neut % (Auto) (50 - 75 %) 69.3 Lymph % (Auto) (25 - 40 %) 22.1 [place] % (Auto) (3 - 14 %) 7.5 Eos % (Auto) (0 - 4 %) 0.9 Baso % (Auto) (0 - 2 %) 0.2 Plt Count, EDTA (150 - 400 K/uL) 187 PUBS MCHC (31 - 37 g/dL) 34 Assessment and Plan Problem List 1. Hypercalcemia Plan - pt has an incidental finding of hypercalcemia - Pts pth level is low, will obtain vitamin d labs as well as intact pth - will continue with aggressive iv hydration - will continue to trend calcium levels 2. New onset type 2 diabetes mellitus Plan - Pt was seen to have an elevated blood sugar on admission - Pt has no history of diabetes and upon speaking to pts pmd pts blood sugars have been elevated for the past 3 months - Will see what patient requires in terms of insulin or medication regimen once 24 hour trend of blood sugars 3. COPD (chronic obstructive pulmonary disease) Plan - stable - no evidence of exacerbation 4. Hypertension Plan - will c/w medications
[2016-08-18 01:01] VITALS: BP 111/75
[2016-08-18 06:54] VITALS: BP 117/62
[2016-08-18 10:19] VITALS: BP 128/68
[2016-08-18 14:26] VITALS: BP 132/70
--- NOTE | 2016-08-18 17:26 | Progress Note ---
Subjective General Pt doing well without any complaints today. Patient has persistent weakness. Patients blood sugars have improved with metformin however will need to increase dose tomorrow. Patient has no complaints at the moment. Constitutional Weakness. Denies: Fever, Chills, Sweats, Malaise, Other. Eyes Denies: Pain, Vision Change, Conjunctival Inflammation, Eyelid Inflammation, Redness, Other. ENT Denies: Ear Pain, Ear Discharge, Nose Pain, Nasal Discharge, Nasal Congestion, Mouth Pain, Mouth Swelling, Throat Pain, Throat Swelling, Other. Respiratory Cough, SOB w/exertion. Denies: Dry, Wheezing, Hemoptysis, Pleuritic Pain, Sputum, Other. Cardiovascular Denies: Chest Pain, Palpitations, Orthopnea, PND, Edema, Light-headedness, Other. Gastrointestinal Denies: Nausea, Vomiting, Abdominal Pain, Diarrhea, Constipation, Melena, Hematochezia, Other. Genitourinary Denies: Dysuria, Frequency, Incontinence, Hematuria, Retention, Other. Musculoskeletal Denies: Neck Pain, Shoulder Pain, Arm Pain, Back Pain, Hand Pain, Leg Pain, Foot Pain, Other. Skin Denies: Rash, Lesions, Jaundice, Bruising, Other. Neurological Denies: Weakness, Numbness, Incoordination, Change in speech, Confusion, Seizures, Other. Physical Exam Vital Signs / I&Os Vital Signs Date Time Temp Pulse Resp B/P Pulse O2 O2 Flow FiO2 Ox Delivery Rate 08/18 1426 98.2 74 20 132/70 96 Nasal 2.0 Cannula 08/18 1019 98.1 81 20 128/68 92 Nasal 2.0 Cannula 08/18 0815 Nasal 1.0 Cannula 08/18 0745 1.5 08/18 0654 97.5 74 16 117/62 94 Nasal 1.0 Cannula 08/18 0101 98.4 65 16 111/75 95 Nasal 1.0 Cannula 08/17 2306 Nasal 1.0 Cannula 08/17 2220 98.2 78 16 103/65 95 Nasal 2.0 Cannula 08/17 2130 2.0 08/17 2102 108/62 08/17 1844 99.0 71 16 95/41 95 Nasal 2.0 Cannula I&O 08/17 0800 08/17 1600 08/18 0000 Intake Total 1215 1556 Output Total 1050 1429 950 Balance 165 127 -950 General Appearance Alert, Oriented X3, No acute distress HEENT Atraumatic, PERRLA, Moist mucous membranes Lungs Clear to auscultation, Normal air movement Cardiovascular Regular rate and rhythm, Normal S1 and S2 Abdomen Soft, No tenderness Extremities No clubbing, No edema, Normal pulses, No tenderness Neurological Normal tone, Sensation intact, Cranial nerves intact LAB Results Laboratory Tests 08/18 08/18 0533 0533 Chemistry Plasma Sodium (136 - 145 mmol/L) 142 Plasma Potassium (3.5 - 5.1 mmol/L) 3.4 Plasma Chloride (98 - 107 mmol/L) 106 CO2 (Enzymatic) (21 - 32 mmol/L) 31 BUN (7 - 18 mg/dL) 31 Creatinine (0.6 - 1.3 mg/dL) 1.1 Est GFR ( Amer) (mL/min) >60 Est GFR (Non-Af Amer) (mL/min) >60 Glucose (70 - 110 mg/dL) 166 Hemoglobin A1c % (4.5 - 6.2 %) 8.5 Plasma Calcium (8.5 - 10.1 mg/dL) 11.7 Total Bilirubin (0.0 - 1.0 mg/dL) 0.4 AST (15 - 37 U/L) 32 ALT (12 - 78 U/L) 29 Alkaline Phosphatase (46 - 116 U/L) 49 Total Protein (6.4 - 8.2 g/dL) 8.6 Albumin (3.3 - 5.0 g/dL) 2.3 Hematology WBC (4.5 - 11.5 K/uL) 9.2 RBC (4.50 - 5.90 M/uL) 3.62 Hgb (13.5 - 17.5 gm/dL) 12.0 Hct (41.0 - 53.0 %) 36.0 MCV (80 - 100 fL) 99 MCH (26 - 34 pg) 33 RDW (11.6 - 14.8 %) 14.8 Neut % (Auto) (50 - 75 %) 73.1 Lymph % (Auto) (25 - 40 %) 19.1 [place] % (Auto) (3 - 14 %) 6.3 Eos % (Auto) (0 - 4 %) 1.1 Baso % (Auto) (0 - 2 %) 0.4 Plt Count, EDTA (150 - 400 K/uL) 185 PUBS MCHC (31 - 37 g/dL) 33 Assessment and Plan Problem List 1. Hypercalcemia Plan - unknown etiology behind hypercalcemia - given current picture patient has mid to average protein levels, with low normal pth and elevated 25 dihydroxy vit D level - given current values this is most likely due to over use of vitamin d - will continue to monitor calcium levels and provide iv fluids - currently awaiting further work up 2. New onset type 2 diabetes mellitus Plan - pt has a finding of new onset diabetes mellitus - pts blood sugars were low enough to start oral hypoglycemic agent - started patient on 500 mg of metformin, will increast to 1000 mg tomorrow - will continue with sliding scale coverage 3. Hypertension Plan - c/w home meds 4. COPD (chronic obstructive pulmonary disease) Plan - c.w breathing treatments as needed
[2016-08-18 18:40] VITALS: BP 113/58
[2016-08-18 22:33] VITALS: BP 110/59
[2016-08-19] VITALS (7 sets, daily range): BP systolic 108–136; BP diastolic 44–68
--- NOTE | 2016-08-19 18:03 | Progress Note ---
Subjective General Pt seen and examined. Patient has improved energy and blood sugars. Patient is otherwise stable. Constitutional Denies: Fever, Chills, Sweats, Weakness, Malaise, Other. Eyes Denies: Pain, Vision Change, Conjunctival Inflammation, Eyelid Inflammation, Redness, Other. ENT Denies: Ear Pain, Ear Discharge, Nose Pain, Nasal Discharge, Nasal Congestion, Mouth Pain, Mouth Swelling, Throat Pain, Throat Swelling, Other. Respiratory Denies: Cough, Dry, SOB w/exertion, Wheezing, Hemoptysis, Pleuritic Pain, Sputum , Other. Cardiovascular Denies: Chest Pain, Palpitations, Orthopnea, PND, Edema, Light-headedness, Other. Gastrointestinal Denies: Nausea, Vomiting, Abdominal Pain, Diarrhea, Constipation, Melena, Hematochezia, Other. Genitourinary Denies: Dysuria, Frequency, Incontinence, Hematuria, Retention, Other. Musculoskeletal Denies: Neck Pain, Shoulder Pain, Arm Pain, Back Pain, Hand Pain, Leg Pain, Foot Pain, Other. Skin Denies: Rash, Lesions, Jaundice, Bruising, Other. Neurological Denies: Weakness, Numbness, Incoordination, Change in speech, Confusion, Seizures, Other. Physical Exam Vital Signs / I&Os Vital Signs Date Time Temp Pulse Resp B/P Pulse O2 O2 Flow FiO2 Ox Delivery Rate 08/19 1439 98.1 64 20 113/67 94 Nasal 2.0 Cannula 08/19 1044 97.9 70 16 108/57 95 Nasal 2.0 Cannula 08/19 0947 2.0 08/19 0809 2.0 08/19 0625 97.7 72 16 123/68 96 Nasal 2.0 Cannula 08/19 0232 97.9 66 18 121/67 98 Nasal 2.0 Cannula 08/18 2233 97.7 65 18 110/59 96 Nasal Cannula 08/18 2059 2.0 08/18 2000 Nasal 2.0 Cannula 08/18 1840 98.8 74 18 113/58 98 Nasal 2.0 Cannula I&O 08/18 0800 08/18 1600 08/19 0000 Intake Total 6281 027 2537 Output Total 069 994 5657 Balance 1175 31 98 General Appearance Alert, Oriented X3, No acute distress Lungs Clear to auscultation, Normal air movement Cardiovascular - pt has occasional runs of sinus tachycardia - Pt additionally develops hypotension without any evidence of inciting cause Abdomen Soft, No tenderness Extremities No edema, Normal pulses, No tenderness Skin No Breakdown Psych/Mental Status Mental status normal LAB Results Laboratory Tests 08/19 0535 Chemistry Plasma Sodium (136 - 145 mmol/L) 136 Plasma Potassium (3.5 - 5.1 mmol/L) 3.2 Plasma Chloride (98 - 107 mmol/L) 105 CO2 (Enzymatic) (21 - 32 mmol/L) 29 BUN (7 - 18 mg/dL) 27 Creatinine (0.6 - 1.3 mg/dL) 1.0 Est GFR ( Amer) (mL/min) >60 Est GFR (Non-Af Amer) (mL/min) >60 Glucose (70 - 110 mg/dL) 156 Plasma Calcium (8.5 - 10.1 mg/dL) 12.7 Total Bilirubin (0.0 - 1.0 mg/dL) 0.3 AST (15 - 37 U/L) 29 ALT (12 - 78 U/L) 30 Alkaline Phosphatase (46 - 116 U/L) 47 Total Protein (6.4 - 8.2 g/dL) 8.3 Albumin (3.3 - 5.0 g/dL) 2.2 Hematology WBC (4.5 - 11.5 K/uL) 9.9 RBC (4.50 - 5.90 M/uL) 3.56 Hgb (13.5 - 17.5 gm/dL) 11.7 Hct (41.0 - 53.0 %) 35.1 MCV (80 - 100 fL) 99 MCH (26 - 34 pg) 33 RDW (11.6 - 14.8 %) 14.9 Neut % (Auto) (50 - 75 %) 69.0 Lymph % (Auto) (25 - 40 %) 21.6 [place] % (Auto) (3 - 14 %) 7.3 Eos % (Auto) (0 - 4 %) 1.4 Baso % (Auto) (0 - 2 %) 0.7 Plt Count, EDTA (150 - 400 K/uL) 167 PUBS MCHC (31 - 37 g/dL) 33 Assessment and Plan Problem List 1. Hypercalcemia Plan - hypercalcemia secondary to vitamin D overuse - pts calcium has increased steadily since yesterday - will start pamidronate IV - will obtain cmp in the am 2. New onset type 2 diabetes mellitus Plan - Pt has a new finding of diabetes mellitus - Hba1c is 8.9% - pt doing well on metformin 1000 mg bid - will continue as an out patient 3. COPD (chronic obstructive pulmonary disease) Plan - duonebs bid prn - no breating difficulty noted
[2016-08-20 01:54] VITALS: BP 123/70
[2016-08-20 07:09] VITALS: BP 121/53
[2016-08-20 11:08] VITALS: BP 122/59
[2016-08-20] MEDS ORDERED: GLUCOPHAGE500 MG PO (13:55)
--- NOTE | 2016-08-20 13:57 | Provider's Discharge Care Plan ---
Problem, Goal, Plan Problem List 1. Hypercalcemia Instructions: - stop taking vitamin d and calcium supplements , - follow up with your primary care doctor for future management 2. New onset type 2 diabetes mellitus 3. COPD (chronic obstructive pulmonary disease) Instructions: Take meds as directed 4. Hypertension Instructions: Take meds as directed
[2016-08-20 16:12] VITALS: BP 119/63
--- NOTE | 2016-09-06 13:12 | Discharge Summary ---
Discharge Summary Report Admit Date 08/16/16 Discharge Date 09/17/16 Admission Diagnosis hypercalcemia Discharge Diagnosis hypercalcemia secondary to vitamin overuse Brief History Patient is a 81 year old male with a pmh of copd, osteoperosis, and hypertension that is presenting with a two month history of lethargy. Patient had been around his usual state of health in the holiday time, however since then the patient has been having multiple upper respiratory infections which has been causing him to be very bed ridden. The patient got such a severe cough that he developed two cracked ribs as a result. Patient has been noticing that his level of energy has been decreasing steadily since then. Patient went to his physician who has been providing antibioitics but there has been no blood work recently that showed any abnormality. Patient is otherwise stable and resting comfortably. Hospital Course Patient was admitted with hypercalcemia. Patient was treated with aggressive IV fluid hydration and medication to reduce the calcium levels. Patient had an appopriate response to the medications however patient was seen to have continual elevation of the calcium levels. Patient was then additionally seen to have elevated blood sugars and a HBa1c that indicates that the patient has diabetes. Patient had blood work done to elucidate the reasononig behind his hypercalcemia. It was ultimately found that the elevated calcium was secondary to the vitamin d supplmentation the patient was taking. Patient was given diabetic teaching and started on oral hypoglycemics. Patient was then placed on pamidronate which eventually caused a gradual decline in the patients calcium level. Patient was asked to follow up with his pmd and to bring his since there may have been communication problems in the pmds office. Patient will follow up within the week with his pmd. General Appearance Alert, Cooperative, No acute distress HEENT PERRLA, EOMI, Mucous membran moist/pink Lungs Clear to auscultation, Normal air movement Cardiovascular Normal S1, Normal S2, No murmurs, Gallops, Rubs Skin No Rashes, No Breakdown, No Significant Lesions Neurological Normal speech, Normal tone, Sensation intact, Cranial nerves 3-12 NL Discharge Instructions/Meds - hold taking vitamin d for the time being - follow up with your pmd for the elevated calcium and the new onset diabetes - take medications as prescribed - adhere to diabetic diet
== END 2016-08-20 17:10 | disposition home or self-care (01) | DRG 638 ==
LOC: ED SRH 15:11 → TRANS SRH 17:34 → ACUTE2 SRH 17:47
PROVIDERS: ADMIT Emergency Medicine
DX: E11.65 Type 2 diabetes mellitus with hyperglycemia (principal); T47.1X1A Poisoning by other antacids and anti-gastric-secretion drugs, accidental (unintentional), initial encounter; E83.52 Hypercalcemia; E87.1 Hypo-osmolality and hyponatremia; E86.0 Dehydration; R09.02 Hypoxemia; M81.0 Age-related osteoporosis without current pathological fracture; J44.9 Chronic obstructive pulmonary disease, unspecified; I10 Essential (primary) hypertension
CPT/HCPCS: 29230; 90001; 90004; 90074; 90098; 90100; 90155; 90616; 90732; 91004; 91096; 91171; 91286; 91320; 91400; 92057; 92530; 92570; 92610; 92720; 94060; 95059; 99307

== ENCOUNTER 2016-08-27 15:38 | Inpatient (IN) | payer OTHER ==
[~2016-08-27] VITALS: Ht 172.7 cm; Wt 56.3 kg
[~2016-08-27 15:38] MED LIST: ADVAIR DISKUS INH; AMLODIPINE BESY1 CA1; CALCIUM CARBON500 MG PO; FISH OIL306 MG PO; GLUCOPHAGE500 MG PO; HYDROCHLOROTHIA25 MG PO; KLOR-CON 1010 MEQ PO; PRAVACHOL20 MG; VITAMIN B 12100 MCG; VITAMIN D-31000 UNIT PO
[2016-08-27 16:27] VITALS: BP 129/62
--- NOTE | 2016-08-27 17:27 | DIAGNOSTIC IMAGING REPORT ---
PROCEDURE: XR CHEST 2 VIEW INDICATION: hypoxia, eval for pneumonia TECHNIQUE: PA and lateral views. COMPARISON: Chest 08/16/2016 FINDINGS: No change in the left lower lobe infiltrate and pleural effusion. There is a new pleural effusion on the right. Heart size remains normal. IMPRESSION: 1. Left lower lobe infiltrate and bilateral pleural effusions.
--- NOTE | 2016-08-27 17:28 | History & Physical Report ---
Admission Admit Date 08/27/16 Information Source Information Source: Self, Spouse/Partner, Family, Physician's office, Old Records History Chief Complaint SOB History of Present Illness 81yoM w/ hx of COPD on 3L and recent admission for COPD exacerbation, HTN, osteoporosis, NIDDM, who presents as a direct admit from his PCP's office for pneumonia. Patient had been admitted from 08/16-08/19 for COPD exacerbation, and was discharged with instructions to follow up with his PCP. Patient states that his breathing has been feeling worse for the last couple days, and appetite has been poor. His PCP performed a CXR today, and per report, noted a large R sided infiltrate. Patient states that he does feel similar to previous bouts of pneumonia, but denies any fevers. He did have diarrhea recently due to his metformin, but this improved with decreasing the dose. His PCP has also recently increased his prednisone to 20mg daily. Patient History 1. COPD (chronic obstructive pulmonary disease) 2. New onset type 2 diabetes mellitus 3. Hypertension 4. Hypercalcemia Social History Previous smoker, no alcohol or drug use. Medications and Allergies Medications Current Medications Sig/Rocky Start time Last Medication Dose Route Stop Time Status Admin Amlodipine Besylate 5 MG DAILY 08/28 0900 UNV PO Hydrochlorothiazide 25 MG DAILY 08/28 0900 UNV PO Prednisone 20 MG DAILY 08/28 0900 UNV PO Pantoprazole Sodium 40 MG DAILY@0600 08/28 0600 UNV Sesquihydrate PO Heparin Sodium 5,000 UNITS Q8HR 08/27 2200 AC (Porcine) SC Insulin Human Lispro See Dose ACHS 08/27 2100 UNi Insts (1) SC Fluticasone/ See Dose RTBID 08/27 2000 UNi Salmeterol Insts (2) IN Atorvastatin Calcium 20 MG QPM 08/27 1800 UNV PO Piperacillin Sod/ 4.5 GM Q6HR 08/27 1800 UNV Tazobactam Sod IV Sodium Chloride 100 ML Oxycodone/ See Dose Q4H PRN 08/27 1715 UNi Acetaminophen Insts (3) PO Vancomycin HCl/ 1,000 MG ONCE 08/27 1615 UNV Dextrose IV Vancomycin HCl/ 200 ML .[PER PHARMACY] 08/27 1615 UNV Dextrose IV Acetaminophen 650 MG Q6H PRN 08/27 1545 AC PO Docusate Sodium 250 MG BID PRN 08/27 1545 AC PO Morphine Sulfate 1 MG Q30MIN PRN 08/27 1545 AC IV Ondansetron HCl 4 MG Q6H PRN 08/27 1545 AC IV Dose Instructions: (1)Insulin Human Lispro: LOW DOSE SLIDING SCALE (2)Fluticasone/Salmeterol: 1 CLICK (3)Oxycodone/Acetaminophen: 1 - 2 TABLETS Allergies Coded Allergies: Latex (Mild, 08/27/16) LATEX ALLERGY WHEN IN SURGERY IN 2003 Review of Systems Other As per HPI, rest of 10-point ROS unremarkable. Physical Exam Vital Signs / I&Os Vital Signs Date Time Temp Pulse Resp B/P Pulse O2 O2 Flow FiO2 Ox Delivery Rate 08/27 1701 3.0 08/27 1627 97.5 80 24 129/62 94 Nasal 3.0 Cannula General Appearance Alert, Oriented X3, Tachypnic, but able to speak in full sentences and w/o accessory muscle use. HEENT Moist mucous membranes Lungs Clear on L, crackles on R, no prolonged expiration or wheezing Neck Supple Cardiovascular Regular rate and rhythm, Normal S1 and S2, No murmurs, gallops, rubs Abdomen Normal bowel sounds, Soft, No tenderness Extremities 2+ ankle edema b/l Skin No Rashes Neurological No lateralizing signs Psych/Mental Status Mental status normal LAB Results Laboratory Tests 08/27 1630 Chemistry Plasma Sodium Pending Plasma Potassium Pending Plasma Chloride Pending CO2 (Enzymatic) Pending BUN Pending Creatinine Pending Est GFR ( Amer) Pending Est GFR (Non-Af Amer) Pending Glucose Pending Plasma Calcium Pending Total Bilirubin Pending AST Pending ALT Pending Alkaline Phosphatase Pending Total Protein Pending Albumin Pending Hematology WBC (4.5 - 11.5 K/uL) 9.8 RBC (4.50 - 5.90 M/uL) 3.46 Hgb (13.5 - 17.5 gm/dL) 11.6 Hct (41.0 - 53.0 %) 34.5 MCV (80 - 100 fL) 100 MCH (26 - 34 pg) 34 RDW (11.6 - 14.8 %) 15.2 Neut % (Auto) (50 - 75 %) 84.2 Lymph % (Auto) (25 - 40 %) 10.9 [place] % (Auto) (3 - 14 %) 4.6 Eos % (Auto) (0 - 4 %) 0.1 Baso % (Auto) (0 - 2 %) 0.2 Plt Count, EDTA (150 - 400 K/uL) 236 PUBS MCHC (31 - 37 g/dL) 34 Microbiology Date/Time Procedure - Status Source Growth 08/27 1645 Blood Culture - RECD BLOOD 08/27 1630 Blood Culture - RECD BLOOD Imaging Pending Assessment and Plan Problem List 1. Healthcare-associated pneumonia Plan Per phone conversation w/ PCP, infiltrate noted on R. Will repeat CXR here. As patient had been hospitalized for >48hrs in the past 30 days, will need to treat for potential MRSA and pseudomonas with vanc and zosyn. Blood cultures drawn on admission, and will follow these up. Will monitor respiratory status and hemodynamics, though patient not exhibiting signs of sepsis at this time. 2. COPD (chronic obstructive pulmonary disease) Plan Not in acute exacerbation at this time. Will continue prednisone 20mg daily, advair, and prn nebs. 3. Hypertension Plan Will continue amlodipine and HCTZ. 4. New onset type 2 diabetes mellitus Plan Holding metformin for now. Will continue SSI. 5. Hypercalcemia Plan Will check calcium level now. FEN: DM Ppx: sub q hep Code: DNR/DNI, per discussion w/ patient on admission Dispo: Inpatient LOC for IV abx as above, as will likely require >2MN hospital stay. E&M Codes Admission: Inpt-Moderate/56653
[2016-08-27 18:45] VITALS: BP 116/60
[2016-08-27 22:40] VITALS: BP 110/70
[2016-08-28 03:08] VITALS: BP 108/61
[2016-08-28 06:54] VITALS: BP 111/83
--- NOTE | 2016-08-28 09:51 | Progress Note ---
Subjective General Patient feels about the same today. No cough or fevers. Constipated this morning. Appetite still poor, but no nausea/vomiting. No rashes. Physical Exam Vital Signs / I&Os Vital Signs Date Time Temp Pulse Resp B/P Pulse O2 O2 Flow FiO2 Ox Delivery Rate 08/28 0654 98.2 73 22 111/83 95 Nasal 3.0 Cannula 08/28 0513 3.0 08/28 0308 97.5 66 16 108/61 96 Nasal 3.0 Cannula 08/28 0110 Nasal 3.0 Cannula 08/27 2240 97.3 64 20 110/70 94 Nasal 3.0 Cannula 08/27 2110 3.0 08/27 1845 98.4 75 20 116/60 96 Nasal 3.0 Cannula 08/27 1829 Nasal 3.0 Cannula 08/27 1701 3.0 08/27 1627 97.5 80 24 129/62 94 Nasal 3.0 Cannula I&O 08/28 0000 08/27 1600 08/27 0800 Intake Total 30 Output Total 350 Balance -320 General Appearance Alert, Oriented X3, Cooperative, No acute distress HEENT Moist mucous membranes Lungs Clear to auscultation, No crackles noted today Neck Supple, No JVD Cardiovascular Regular rate and rhythm, Normal S1 and S2, No murmurs, gallops, rubs Abdomen Normal bowel sounds, Soft, No tenderness Extremities 1+ ankle edema b/l, improved from yesterday Skin No Rashes Neurological No lateralizing signs Psych/Mental Status Mental status normal, Mood normal LAB Results Laboratory Tests 08/28 08/28 08/27 0535 0500 1630 Chemistry Plasma Sodium (136 - 145 mmol/L) 131 129 Plasma Potassium (3.5 - 5.1 mmol/L) 4.5 5.2 Plasma Chloride (98 - 107 mmol/L) 98 96 CO2 (Enzymatic) (21 - 32 mmol/L) 30 30 BUN (7 - 18 mg/dL) 21 28 Creatinine (0.6 - 1.3 mg/dL) 0.9 0.8 Est GFR ( Amer) (mL/min) >60 >60 Est GFR (Non-Af Amer) (mL/min) >60 >60 Glucose (70 - 110 mg/dL) 169 219 Plasma Calcium (8.5 - 10.1 mg/dL) 8.1 8.9 Total Bilirubin (0.0 - 1.0 mg/dL) 0.7 Cancelled 0.5 Direct Bilirubin (0 - 0.3 mg/dL) 0.2 Cancelled AST (15 - 37 U/L) 35 Cancelled 49 ALT (12 - 78 U/L) 75 Cancelled 85 Alkaline Phosphatase (46 - 116 U/L) 63 Cancelled 77 Total Protein (6.4 - 8.2 g/dL) 8.2 Cancelled 9.7 Albumin (3.3 - 5.0 g/dL) 2.3 Cancelled 2.7 Hematology WBC (4.5 - 11.5 K/uL) 9.2 9.8 RBC (4.50 - 5.90 M/uL) 3.15 3.46 Hgb (13.5 - 17.5 gm/dL) 10.6 11.6 Hct (41.0 - 53.0 %) 31.4 34.5 MCV (80 - 100 fL) 100 100 MCH (26 - 34 pg) 34 34 RDW (11.6 - 14.8 %) 15.6 15.2 Neut % (Auto) (50 - 75 %) 74.6 84.2 Lymph % (Auto) (25 - 40 %) 23.5 10.9 [place] % (Auto) (3 - 14 %) 0.8 4.6 Eos % (Auto) (0 - 4 %) 0.8 0.1 Baso % (Auto) (0 - 2 %) 0.3 0.2 Plt Count, EDTA (150 - 400 K/uL) 222 236 PUBS MCHC (31 - 37 g/dL) 34 34 Microbiology Date/Time Procedure - Status Source Growth 08/27 1645 Blood Culture - RECD BLOOD 08/27 1630 Blood Culture - RECD BLOOD Assessment and Plan Problem List 1. Healthcare-associated pneumonia Plan Continuing on vanc/zosyn for HCAP (day 2 tonight). Will follow up blood cultures. Monitor respiratory status. If improving by tomorrow, can start to de-escalate abx. 2. COPD (chronic obstructive pulmonary disease) Plan Not in acute exacerbation. Continuing daily prednisone, advair, and nebs prn. 3. New onset type 2 diabetes mellitus Plan Holding metformin for now. SSI while in house. 4. Hypertension Plan Continue amlodipine and HCTZ. 5. Dehydration Plan Was hyponatremic and hyperkalemic yesterday. This improved with IVF's overnight. Holding off on further IVF for now. Transaminitis resolved today. Can restart statin. FEN: DM PPx: sub q hep Code: DNR/DNI Dispo: Pending continued need for IV abx. E&M Codes Rounding: Inpt-Moderate/97012
[2016-08-28 11:41] VITALS: BP 126/65
[2016-08-28 14:41] VITALS: BP 117/53
[2016-08-28 18:16] VITALS: BP 108/57
[2016-08-28 23:52] VITALS: BP 110/60
[2016-08-29] VITALS (7 sets, daily range): BP systolic 102–121; BP diastolic 48–71
--- NOTE | 2016-08-29 08:17 | DIAGNOSTIC IMAGING REPORT ---
PROCEDURE: XR CHEST 1 VIEW INDICATION: Worsening hypoxia despite tx for pna TECHNIQUE: Single view chest. 736 hours COMPARISON: 08/27/2016 and 08/16/2016 FINDINGS: Normal heart size. Tortuous thoracic aorta. Prominent central pulmonary arteries. No central venous congestion. Mild diffuse alveolar opacity involving much of the left lung. Interval worsening in strandy infiltrate the right lung base. Increased right pleural effusion. Stable, trace left pleural effusion. Moderate hyperinflation stable osseous structures. IMPRESSION: 1. Worsened mild diffuse left lung opacity. 2. Increased right pleural effusion and opacity, atelectasis versus infectious. 3. Findings superimposed on moderate emphysema. 4. Findings called to the floor.
--- NOTE | 2016-08-29 10:09 | Progress Note ---
Subjective General Apparently became more hypoxic sometime overnight. Patient had been feeling better yesterday afternoon, but now feels worse. No fevers. No choking or coughing noted with dinner. Physical Exam Vital Signs / I&Os Vital Signs Date Time Temp Pulse Resp B/P Pulse O2 O2 Flow FiO2 Ox Delivery Rate 08/29 0800 3.5 08/29 0650 97.9 79 16 118/65 100 Mask 10.0 08/29 0635 97.5 77 18 121/66 100 Mask 10.0 08/29 0629 10.0 08/29 0552 4.0 08/29 0424 97.7 75 20 113/71 97 Nasal 4.0 Cannula 08/29 0035 4.0 08/28 2352 98.4 70 16 110/60 96 Nasal 4.0 Cannula 08/28 2047 4.0 08/28 1816 98.2 75 16 108/57 94 Nasal 4.0 Cannula 08/28 1614 Nasal 4.0 Cannula 08/28 1441 98.2 84 20 117/53 93 Nasal 4.0 Cannula 08/28 1421 3.0 08/28 1200 3.0 08/28 1141 97.9 78 22 126/65 90 Nasal 3.0 Cannula I&O 08/29 0000 08/28 1600 08/28 0800 Intake Total 513 746 2749 Output Total 650 1550 350 Balance -500 -1170 748 General Appearance Alert, Oriented X3, Cooperative, Mild distress HEENT Moist mucous membranes Lungs No crackles noted, but b/l expiratory wheezing. Patient is tachypnic, but able to speak in full sentences and w/o accessory muscle use. Neck Supple Cardiovascular Regular rate and rhythm, Normal S1 and S2, No murmurs, gallops, rubs Abdomen Normal bowel sounds, Soft, No tenderness Extremities 1-2+ b/l ankle edema Skin No Rashes Neurological No lateralizing signs Psych/Mental Status Mental status normal, Mood normal LAB Results Laboratory Tests 08/29 08/29 0831 0511 Chemistry Plasma Sodium (136 - 145 mmol/L) 134 Plasma Potassium (3.5 - 5.1 mmol/L) 4.5 Plasma Chloride (98 - 107 mmol/L) 100 CO2 (Enzymatic) (21 - 32 mmol/L) 27 BUN (7 - 18 mg/dL) 22 Creatinine (0.6 - 1.3 mg/dL) 0.9 Est GFR ( Amer) (mL/min) >60 Est GFR (Non-Af Amer) (mL/min) >60 Glucose (70 - 110 mg/dL) 145 Plasma Calcium (8.5 - 10.1 mg/dL) 8.6 Plasma Magnesium (1.8 - 2.4 mg/dL) 1.8 Hematology WBC (4.5 - 11.5 K/uL) 9.1 RBC (4.50 - 5.90 M/uL) 3.19 Hgb (13.5 - 17.5 gm/dL) 10.5 Hct (41.0 - 53.0 %) 31.8 MCV (80 - 100 fL) 100 MCH (26 - 34 pg) 33 RDW (11.6 - 14.8 %) 15.9 Neut % (Auto) (50 - 75 %) 73.5 Lymph % (Auto) (25 - 40 %) 20.7 [place] % (Auto) (3 - 14 %) 4.7 Eos % (Auto) (0 - 4 %) 0.6 Baso % (Auto) (0 - 2 %) 0.5 Plt Count, EDTA (150 - 400 K/uL) 227 PUBS MCHC (31 - 37 g/dL) 33 Toxicology Vancomycin Trough Pending Assessment and Plan Problem List 1. Healthcare-associated pneumonia Plan CXR showing worsening. Will continue on vanc/zosyn, and adding levaquin today. Has not spiked any temperatures, and WBC count remains stable. I worry that the patient could be aspirating, so I had to make him NPO today and have ordered a swallow evaluation for tomorrow. 2. COPD (chronic obstructive pulmonary disease) Plan Appears to be developing an acute exacerbation of his COPD today. Will increase his prednisone to 40mg and will place on scheduled nebs. Continue his advair as prescribed. 3. Hypertension Plan Continuing HCTZ and amlodipine. 4. New onset type 2 diabetes mellitus Plan Continue SSI. Holding metformin. FEN: NPO for now PPx: sub q hep Code: DNR/DNI Dispo: Remains inpatient due to acute worsening and concern of aspiration. E&M Codes Rounding: Inpt-High/70251
[2016-08-30] VITALS (7 sets, daily range): BP systolic 108–132; BP diastolic 53–81
--- NOTE | 2016-08-30 09:26 | Progress Note ---
Subjective General Patient feeling a little better, but breathing is still heavy. Physical Exam Vital Signs / I&Os Vital Signs Date Time Temp Pulse Resp B/P Pulse O2 O2 Flow FiO2 Ox Delivery Rate 08/30 0719 3.0 08/30 0701 97.7 69 16 113/58 96 Nasal 3.0 Cannula 08/30 0347 3.0 08/30 0230 97.5 78 18 114/53 97 Nasal 3.0 Cannula 08/30 0102 3.0 08/29 2305 3.0 08/29 2300 97.7 82 18 107/53 95 Nasal 3.0 Cannula 08/29 1907 3.0 08/29 1839 97.7 76 18 102/48 99 Nasal 3.0 Cannula 08/29 1630 Nasal 3.5 Cannula 08/29 1600 3.5 08/29 1424 97.5 77 18 110/50 96 Nasal 3.5 Cannula 08/29 1027 97.9 78 18 120/56 94 Mask 3.5 I&O 08/30 0000 08/29 1600 08/29 0800 Intake Total 761 0 Output Total 1300 1630 400 Balance -539 -1630 -400 General Appearance Alert, Oriented X3, Cooperative, Tachypnic but w/o accessory muscle use. Lungs Improved expiratory wheezing, no crackles Neck Supple Cardiovascular Regular rate and rhythm, Normal S1 and S2, No murmurs, gallops, rubs Abdomen Normal bowel sounds, Soft, No tenderness Extremities LE edema has improved, but L now more swollen than R. Skin No Rashes Neurological No lateralizing signs Psych/Mental Status Mental status normal Assessment and Plan Problem List 1. Healthcare-associated pneumonia Plan Found out yesterday that zosyn dose had been changed earlier in the hospital stay to a lower dose. Have increased this back up to 4.5g q6h, and holding on further levaquin for now. Continuing on vanc as well for mrsa coverage. Concern that his worsening pneumonia may be related to aspiration. The plan was for speech therapy to eval today, but they will not be available until Tuesday. Will do a modified barium swallow study today instead. Blood cultures so far NGTD. 2. COPD exacerbation Plan Wheezing a bit better today. Will continue the increased dose of prednisone 40mg for now, and continue scheduled nebs. 3. New onset type 2 diabetes mellitus Plan Continue SSI, holding metformin while hospitalized. 4. Hypertension Plan Continue HCTZ and amlodipine. Leg swelling--looks asymmetric today. Will check LE dopplers to r/o dvt. FEN: NPO for now PPx: sub q hep Code: DNR/DNI Dispo: Pending improvement in his respiratory status and workup above. PT eval. E&M Codes Rounding: Inpt-High/[id number]
--- NOTE | 2016-08-30 11:11 | DIAGNOSTIC IMAGING REPORT ---
PROCEDURE: US VENOUS - BILATERAL EXT INDICATION: asymmetric LE edema, r/o DVT TECHNIQUE: Duplex sonography of the deep venous system in both lower extremities was performed. Compression and augmentation techniques were used. COMPARISON: None. FINDINGS: Each interrogated segment of deep vein from the common femoral vein into the calf veins demonstrates normal compressibility, augmentation and/or color Doppler flow without filling defect. No evidence of significant soft-tissue edema, soft-tissue mass or cyst. IMPRESSION: 1. No deep venous thrombosis in either lower extremity.
[2016-08-31] VITALS (7 sets, daily range): BP systolic 98–132; BP diastolic 61–76
--- NOTE | 2016-08-31 08:31 | Progress Note ---
Subjective General Note Date: August 31, 2016 Admission Date: August 27, 2016 Hospital Day: 5 PCP: Mary Oconnor Status: Inpatient Advanced Directive: NO CODE Room: 205 Brief History: The patient is a 81-year-old white male with a significant past medical history of O2 dependent COPD, hypertension, osteoporosis, type 2 diabetes mellitus, who presented to [facility] emergency department on the day of admission secondary to complaints of shortness of breath. [facility] ER evaluation was consistent with findings of left-sided pneumonia. Secondary to the above, the patient was admitted by Gricelda Aden M.D. for further evaluation and treatment. For other history present illness, past medical history, family history, social history, review of systems, and admission physical examination please see the patient's history and physical examination and ER visit note in the patient's medical record. Subjective: The patient states his shortness of breath is improved since admission. He is approximately 20-30% better. Poor appetite. Remains weak. Overall status has improved. Patient requests: No specific Medications and Allergies Medications Current Medications Sig/Rocky Start time Last Medication Dose Route Stop Time Status Admin Clarify Med Order See Dose 08/31 09 AC Insts (1) IV 08/31 0959 Prednisone 40 MG DAILY 08/30 09 AC 08/30 PO 0830 Sodium Chloride 1,000 ML ASDIRECTED 08/29 1530 AC 08/30 IV 2308 Lorazepam 0.5 MG Q6H PRN 08/29 1515 AC PO Piperacillin Sod/ 4.5 GM Q6HR 08/29 1200 AC 08/31 Tazobactam Sod IV 0601 Sodium Chloride 100 ML Vancomycin HCl/ 200 ML Q12H 08/29 1000 AC 08/30 Dextrose IV 2230 Albuterol/Ipratropium 3 ML RTQ4H 08/29 0930 AC 08/31 IN 0717 Polyethylene Glycol 17 GM DAILY PRN 08/28 0945 AC PO Senna 2 TAB DAILY 08/28 0939 AC 08/30 PO 0830 Amlodipine Besylate 5 MG DAILY 08/28 09 AC 08/30 PO 0830 Hydrochlorothiazide 25 MG DAILY 08/28 0900 AC 08/30 PO 0830 Pantoprazole Sodium 40 MG DAILY@0600 08/28 0600 AC 08/31 Sesquihydrate PO 0601 Heparin Sodium 5,000 UNITS Q8HR 08/27 2200 AC 08/31 (Porcine) SC 0601 Guaifenesin 600 MG BID 08/27 2100 AC 08/30 PO 205 Fluticasone/ See Dose RTBID 08/27 2000 AC 08/31 Salmeterol Insts (2) IN 0717 Atorvastatin Calcium 20 MG QPM 08/27 1800 AC 08/30 PO 1806 Insulin Human Lispro See Dose ACHS 08/27 1800 AC 08/31 Insts (3) SC 0746 Benzonatate 200 MG TID PRN 08/27 1730 AC PO Oxycodone/ See Dose Q4H PRN 08/27 1715 AC 08/29 Acetaminophen Insts (4) PO 1453 Acetaminophen 650 MG Q6H PRN 08/27 1545 AC PO Docusate Sodium 250 MG BID PRN 08/27 1545 AC 08/28 PO 0813 Morphine Sulfate 1 MG Q30MIN PRN 08/27 1545 AC 08/30 IV 1806 Ondansetron HCl 4 MG Q6H PRN 08/27 1545 AC IV Dose Instructions: (1)Clarify Med Order: VANCOMYCIN TROUGH (2)Fluticasone/Salmeterol: 1 CLICK (3)Insulin Human Lispro: LOW DOSE SLIDING SCALE (4)Oxycodone/Acetaminophen: 1 - 2 TABLETS Allergies Coded Allergies: Latex (Mild, 08/27/16) LATEX ALLERGY WHEN IN SURGERY IN 2003 Physical Exam Vital Signs / I&Os Vital Signs Date Time Temp Pulse Resp B/P Pulse O2 O2 Flow FiO2 Ox Delivery Rate 08/31 0822 70 22 111/70 93 Nasal 3.0 Cannula 08/31 0748 Nasal 3.0 Cannula 08/31 0718 3.0 08/31 0613 97.3 78 20 132/66 95 Nasal 3.0 Cannula 08/31 0334 97.7 77 19 118/69 98 Nasal 3.0 Cannula 08/31 0124 Nasal 3.0 Cannula 08/30 2320 3.0 08/30 2304 97.3 73 24 108/60 93 Nasal 3.0 Cannula 08/30 1912 3.0 08/30 1815 104 24 110/71 94 Nasal 3.0 Cannula 08/30 1549 3.0 08/30 1418 98.1 87 24 132/81 94 Nasal 3.0 Cannula 08/30 1130 3.0 08/30 1030 97.9 78 24 111/54 95 Nasal 3.0 Cannula 08/30 0957 97.5 69 18 113/64 96 Nasal 3.0 Cannula 08/30 0923 Nasal 3.0 Cannula I&O 08/31 0000 08/30 1600 08/30 0800 Intake Total 320 542 726 Output Total 875 1050 350 Balance -555 -508 376 General Appearance Alert, Oriented X3, Cooperative, No acute distress Lungs Scattered rhonchi. No wheezes. Bilateral basilar crackles-mild Cardiovascular Regular rate and rhythm, Normal S1 and S2 Abdomen Normal bowel sounds, Soft, No tenderness Extremities No cyanosis, No clubbing, 2+ ankle edema Neurological Cranial nerves intact, No lateralizing signs Psych/Mental Status Mental status normal, slightly anxious LAB Results Laboratory Tests 08/31 0529 Chemistry Plasma Sodium (136 - 145 mmol/L) 132 Plasma Potassium (3.5 - 5.1 mmol/L) 4.0 Plasma Chloride (98 - 107 mmol/L) 99 CO2 (Enzymatic) (21 - 32 mmol/L) 27 BUN (7 - 18 mg/dL) 20 Creatinine (0.6 - 1.3 mg/dL) 0.9 Est GFR ( Amer) (mL/min) >60 Est GFR (Non-Af Amer) (mL/min) >60 Glucose (70 - 110 mg/dL) 183 Plasma Calcium (8.5 - 10.1 mg/dL) 8.3 Plasma Magnesium (1.8 - 2.4 mg/dL) 1.7 Hematology WBC (4.5 - 11.5 K/uL) 9.2 RBC (4.50 - 5.90 M/uL) 3.04 Hgb (13.5 - 17.5 gm/dL) 10.3 Hct (41.0 - 53.0 %) 30.1 MCV (80 - 100 fL) 99 MCH (26 - 34 pg) 34 RDW (11.6 - 14.8 %) 15.7 Neut % (Auto) (50 - 75 %) 76.0 Lymph % (Auto) (25 - 40 %) 17.4 [place] % (Auto) (3 - 14 %) 4.9 Eos % (Auto) (0 - 4 %) 0.6 Baso % (Auto) (0 - 2 %) 1.1 Plt Count, EDTA (150 - 400 K/uL) 251 PUBS MCHC (31 - 37 g/dL) 34 Assessment and Plan Problem List 1. Healthcare-associated pneumonia Plan -Patient presents with findings of pneumonia. -Procalcitonin, CRP, WBC, temperature within normal limits -DC vancomycin -Change to oral medications in a.m. if stable 2. COPD exacerbation Plan -Patient with history of COPD with probable mild exacerbation -O2 sats stable -Continue DuoNeb, albuterol, and corticosteroids 3. Diabetes mellitus Status Acute Onset Date Unknown Plan -Patient with history of diabetes mellitus -Insulin sliding scale -Long-acting insulin -Adjustments in therapy based on blood sugar measurements -Blood sugars remain elevated this time. 4. Hyponatremia Status Acute Onset Date Unknown Plan -Patient shows mild hyponatremia -Possibly related to elevation of blood sugar -Monitor -No fluid restriction at this time 5. Hypomagnesemia Status Acute Onset Date Unknown Plan -Patient with mild hypomagnesemia -By mouth supplementation, Slow-Mag one by mouth 3 times a day -Monitor 6. Anemia Status Acute Onset Date Unknown Plan -Patient with mild anemia. -Check B12, folate, iron studies -Monitor 7. Hypertension Plan -Patient with history of hypertension -Blood pressure low at this time. -BP 98/61 this a.m. -Monitor Current status: Fair, unstable Anticipated discharge date: Anticipated discharge 2 days Anticipated discharge placement: Home Patient care time: Time spent in chart review, patient interview, physical exam, CPOE, and care documentation: 25 minutes Visit to patient today: 2 Complexity of care: Moderate E&M Codes Rounding: Inpt-Moderate/[id number]
[2016-09-01 03:20] VITALS: BP 104/60
[2016-09-01 06:34] VITALS: BP 108/75
[2016-09-01 11:39] VITALS: BP 109/66
[2016-09-01 14:23] VITALS: BP 109/66
--- NOTE | 2016-09-01 15:12 | Progress Note ---
Subjective General Note Date: September 01, 2016 Admission Date: August 27, 2016 Hospital Day: 6 PCP: Flower Redman M.D. Status: Inpatient Advanced Directive: NO CODE Room: 205 Brief History: The patient is a 81-year-old white male with a significant past medical history of O2 dependent COPD, hypertension, osteoporosis, type 2 diabetes mellitus, who presented to [facility] emergency department on the day of admission secondary to complaints of shortness of breath. [facility] ER evaluation was consistent with findings of left-sided pneumonia. Secondary to the above, the patient was admitted by Gricelda Aden M.D. for further evaluation and treatment. For other history present illness, past medical history, family history, social history, review of systems, and admission physical examination please see the patient's history and physical examination and ER visit note in the patient's medical record. Subjective: The patient states his shortness of breath is improved since admission. He remains weak but improved. Appetite slightly better today. Patient requests: No specific Medications and Allergies Medications Current Medications Sig/Rocky Start time Last Medication Dose Route Stop Time Status Admin Amoxicillin/ 875 MG BID 09/01 2099 AC Clavulanate Potassium PO Magnesium Citrate 300 ML 1300 09/01 1300 CAN PO 09/01 1500 Magnesium Chloride 535 MG TID 08/31 2199 AC 09/01 PO 1450 Vancomycin HCl/ 200 ML Q12H 08/31 220 CAN Dextrose IV Albuterol/Ipratropium 3 ML RTQ6H 08/31 2000 AC 09/01 IN 0757 Prednisone 40 MG DAILY 08/30 09 AC 09/01 PO 0815 Lorazepam 0.5 MG Q6H PRN 08/29 1515 AC 09/01 PO 0438 Polyethylene Glycol 17 GM DAILY PRN 08/28 0945 AC PO Senna 2 TAB DAILY 08/28 0939 AC 09/01 PO 0815 Amlodipine Besylate 5 MG DAILY 08/28 09 AC 09/01 PO 0815 Hydrochlorothiazide 25 MG DAILY 08/28 09 AC 09/01 PO 0815 Pantoprazole Sodium 40 MG DAILY@0600 08/28 0600 AC 09/01 Sesquihydrate PO 0537 Heparin Sodium 5,000 UNITS Q8HR 08/27 2199 AC 09/01 (Porcine) SC 1450 Guaifenesin 600 MG BID 08/27 2099 AC 09/01 PO 0815 Fluticasone/ See Dose RTBID 08/27 2000 AC 09/01 Salmeterol Insts (1) IN 0758 Atorvastatin Calcium 20 MG QPM 08/27 1800 AC 08/31 PO 1805 Insulin Human Lispro See Dose ACHS 08/27 1800 AC 09/01 Insts (2) SC 1214 Benzonatate 200 MG TID PRN 08/27 1730 AC 09/01 PO 0147 Oxycodone/ See Dose Q4H PRN 08/27 1715 AC 08/29 Acetaminophen Insts (3) PO 1453 Acetaminophen 650 MG Q6H PRN 08/27 1545 AC PO Docusate Sodium 250 MG BID PRN 08/27 1545 AC 08/28 PO 0813 Morphine Sulfate 1 MG Q30MIN PRN 08/27 1545 AC 08/31 IV 1805 Ondansetron HCl 4 MG Q6H PRN 08/27 1545 AC IV Dose Instructions: (1)Fluticasone/Salmeterol: 1 CLICK (2)Insulin Human Lispro: LOW DOSE SLIDING SCALE (3)Oxycodone/Acetaminophen: 1 - 2 TABLETS Allergies Coded Allergies: Latex (Mild, 08/27/16) LATEX ALLERGY WHEN IN SURGERY IN 2003 Physical Exam Vital Signs / I&Os Vital Signs Date Time Temp Pulse Resp B/P Pulse O2 O2 Flow FiO2 Ox Delivery Rate 09/01 1423 97.7 77 16 109/66 97 Nasal 3.0 Cannula 09/01 1139 97.9 82 16 109/66 96 Nasal 3.0 Cannula 09/01 0848 3.0 09/01 0815 3.0 09/01 0634 97.5 78 22 108/75 98 Nasal 3.0 Cannula 09/01 0320 97.9 80 20 104/60 98 Nasal 3.0 Cannula 09/01 0224 3.0 08/31 2244 97.5 83 20 112/64 95 Nasal 3.0 Cannula 08/31 2016 Nasal 2.5 Cannula 08/31 1922 2.5 08/31 1811 98.6 95 20 121/76 93 Nasal 3.0 Cannula I&O 09/01 0000 08/31 1600 08/31 0800 Intake Total 353 1123 697 Output Total 1100 975 450 Balance -747 148 247 General Appearance Alert, Cooperative, No acute distress Lungs Scattered rhonchi otherwise clear to auscultation Cardiovascular Regular rate and rhythm, Normal S1 and S2 Abdomen Normal bowel sounds, Soft, No tenderness Extremities No cyanosis, No clubbing, edema slightly improved to lower extremities Neurological Cranial nerves intact, No lateralizing signs Psych/Mental Status Mental status normal, slightly depressed, anxious LAB Results Laboratory Tests 09/01 08/31 08/31 08/31 1128 1535 1535 1535 Chemistry Plasma Sodium (136 - 145 mmol/L) 134 Plasma Potassium (3.5 - 5.1 mmol/L) 3.8 Plasma Chloride (98 - 107 mmol/L) 101 CO2 (Enzymatic) (21 - 32 mmol/L) 29 BUN (7 - 18 mg/dL) 20 Creatinine (0.6 - 1.3 mg/dL) 1.0 Est GFR ( Amer) (mL/min) >60 Est GFR (Non-Af Amer) (mL/min) >60 Glucose (70 - 110 mg/dL) 254 Plasma Calcium (8.5 - 10.1 mg/dL) 8.4 Plasma Magnesium (1.8 - 2.4 mg/dL) 1.6 C-Reactive Protein (0.0 - 0.9 mg/dL) < 0.2 B-Natriuretic Peptide (5 - 100 pg/ml) 155 Procalcitonin (0 - 0.5 ng/mL) <0.5 Hematology WBC (4.5 - 11.5 K/uL) 9.3 8.8 RBC (4.50 - 5.90 M/uL) 3.10 3.33 Hgb (13.5 - 17.5 gm/dL) 10.4 10.9 Hct (41.0 - 53.0 %) 31.0 32.8 MCV (80 - 100 fL) 100 99 MCH (26 - 34 pg) 34 33 RDW (11.6 - 14.8 %) 16.3 16.5 Neut % (Auto) (50 - 75 %) 75 79 Lymph % (Auto) (25 - 40 %) 19 12 [place] % (Auto) (3 - 14 %) 1 6 Eos % (Auto) (0 - 4 %) 0 0 Baso % (Auto) (0 - 2 %) 0 0 Band Neutrophils % (0 - 8 %) 5 3 Metamyelocytes % (0 - 1 %) 0 0 Myelocytes (0 - 1 %) 0 0 Other Cell Type 0 FEW GIANT PLATELETS Plt Count, EDTA (150 - 400 K/uL) 245 257 RBC Morphology . Anisocytosis (manual) 1+ 1+ PUBS MCHC (31 - 37 g/dL) 34 33 08/31 1512 Blood Gas Sample Site LR Total CO2 (24.0 - 30.0 mmol/L) 29.4 ABG pH (7.35 - 7.45) 7.45 ABG pCO2 at Pt Temp (35 - 45 mmHg) 40.6 ABG pO2 at Pt Temp (60.0 - 80.0 mmHg) 49.1 ABG HCO3 (20.0 - 26.0 mmol/L) 28.2 ABG O2 Sat Calc/Dnaiel (95.1 - 100.0 %) 86.9 ABG Base Excess (-6.0 - -6.0 mmol/L) 3.8 ABG Reduced Hgb (%) 12.9 ABG Carboxyhemoglobin (0.5 - 1.5 %) 1.7 ABG Methemoglobin (0.4 - 1.5 %) 0.1 Luis M Test YES Other Total Hgb (14.0 - 18.0 g/dL) 10.7 A-a O2 Gradient (7.0 - 14.0 mmHg) Pending Hgb O2 Saturation (95.0 - 100.0 %) 85.3 Respiration Rate (/MIN) 16 FiO2 (20 - 101 %) 0.21 Assessment and Plan Problem List 1. Pneumonia Status Acute Onset Date Unknown Plan -Improved -Afebrile, WBC normal, CRP normal, Procalcitonin normal -Changed to oral medications in the form of Augmentin 875 mg by mouth twice a day -Possible discharge in a.m. 2. COPD exacerbation Plan -Stable. -Lung exam improved 3. Diabetes mellitus Status Acute Onset Date Unknown Plan -Patient with persistent elevation of blood glucose -Insulin sliding scale -Blood sugar elevation exacerbated by use of corticosteroids -Placed back on metformin 1000 mg by mouth twice a day -Taper corticosteroids -Monitor 4. Hypomagnesemia Status Acute Onset Date Unknown Plan -Patient with findings of hypomagnesemia -Magnesium 1.6 today -IV/oral [id number] one by mouth 3 times a day -Monitor 5. Hyponatremia Status Acute Onset Date Unknown Plan -Patient with mild hyponatremia -Sodium 134 today -Monitor 6. Anemia Status Acute Onset Date Unknown Plan -Patient with mild anemia -H&H today 10..0, MCV 100 -Check iron studies, B12, folate -Monitor 7. Hypertension Plan -Well-controlled -BP this a.m. 104/60 mmHg -Monitor Current status: Fair, improved Anticipated discharge date: Anticipated discharge 1-2 days Anticipated discharge placement: Home versus assisted facility Patient care time: Time spent in chart review, patient interview, physical exam, CPOE, and care documentation: 25 minutes Visit to patient today: 1 Complexity of care: Moderate E&M Codes Rounding: Inpt-Moderate/[id number]
[2016-09-01 18:37] VITALS: BP 116/66
[2016-09-01 23:08] VITALS: BP 96/59
[2016-09-02 03:43] VITALS: BP 110/59
[2016-09-02 07:14] VITALS: BP 120/69
[2016-09-02 09:42] VITALS: BP 113/61
[2016-09-02 14:36] VITALS: BP 122/46
--- NOTE | 2016-09-02 17:57 | Progress Note ---
Subjective General Note Date: September 01, 2016 Admission Date: August 27, 2016 Hospital Day: 6 PCP: Flower Redman M.D. Status: Inpatient Advanced Directive: NO CODE Room: 205 Brief History: The patient is a 81-year-old white male with a significant past medical history of O2 dependent COPD, hypertension, osteoporosis, type 2 diabetes mellitus, who presented to [facility] emergency department on the day of admission secondary to complaints of shortness of breath. [facility] ER evaluation was consistent with findings of left-sided pneumonia. Secondary to the above, the patient was admitted by Gricelda Aden M.D. for further evaluation and treatment. For other history present illness, past medical history, family history, social history, review of systems, and admission physical examination please see the patient's history and physical examination and ER visit note in the patient's medical record. Subjective: The patient states his shortness of breath is improved since admission. He remains weak but improved. Appetite slightly better today. Patient requests: No specific Medications and Allergies Medications Current Medications Sig/Rocky Start time Last Medication Dose Route Stop Time Status Admin Prednisone 20 MG DAILY 09/02 899 AC 09/02 PO 0842 Amoxicillin/ 875 MG BID 09/01 2099 AC 09/02 Clavulanate Potassium PO 0842 Insulin Human Lispro See Dose ACHS 09/01 2100 AC 09/02 Insts (1) SC 1220 Metformin HCl 1,000 MG BIDWC 09/01 1800 AC 09/02 PO 0842 Magnesium Chloride 535 MG TID 08/31 2200 AC 09/02 PO 1545 Albuterol/Ipratropium 3 ML RTQ6H 08/31 2000 AC 09/02 IN 1324 Lorazepam 0.5 MG Q6H PRN 08/29 1515 AC 09/01 PO 0438 Polyethylene Glycol 17 GM DAILY PRN 08/28 0945 AC PO Senna 2 TAB DAILY 08/28 0939 AC 09/01 PO 0815 Amlodipine Besylate 5 MG DAILY 08/28 09 AC 09/02 PO 0842 Hydrochlorothiazide 25 MG DAILY 08/28 09 AC 09/02 PO 0842 Pantoprazole Sodium 40 MG DAILY@0600 08/28 0600 AC 09/02 Sesquihydrate PO 0607 Heparin Sodium 5,000 UNITS Q8HR 08/270 AC 09/02 (Porcine) SC 1545 Guaifenesin 600 MG BID 08/27 2100 AC 09/02 PO 0842 Fluticasone/ See Dose RTBID 08/27 2000 AC 09/02 Salmeterol Insts (2) IN 09 Atorvastatin Calcium 20 MG QPM 08/27 1800 AC 09/01 PO 1808 Benzonatate 200 MG TID PRN 08/27 1730 AC 09/01 PO 0147 Oxycodone/ See Dose Q4H PRN 08/27 1715 AC 08/29 Acetaminophen Insts (3) PO 1453 Acetaminophen 650 MG Q6H PRN 08/27 1545 AC PO Docusate Sodium 250 MG BID PRN 08/27 1545 AC 08/28 PO 0813 Morphine Sulfate 1 MG Q30MIN PRN 08/27 1545 AC 09/02 IV 0947 Ondansetron HCl 4 MG Q6H PRN 08/27 1545 AC IV Dose Instructions: (1)Insulin Human Lispro: MEDIUM DOSE ACCUCHECK AND SLIDING SCALE >>To change sliding scale DISCONTINUE this order and enter a NEW order. Thanks< (2)Fluticasone/Salmeterol: 1 CLICK (3)Oxycodone/Acetaminophen: 1 - 2 TABLETS Allergies Coded Allergies: Latex (Mild, 08/27/16) LATEX ALLERGY WHEN IN SURGERY IN 2003 Physical Exam Vital Signs / I&Os Vital Signs Date Time Temp Pulse Resp B/P Pulse O2 O2 Flow FiO2 Ox Delivery Rate 09/02 1436 97.9 63 20 122/46 94 Nasal 2.0 Cannula 09/02 1324 3.0 09/02 0959 3.0 09/02 0942 98.1 94 26 113/61 95 Nasal 3.0 Cannula 09/02 0842 Nasal 3.0 Cannula 09/02 0714 97.7 70 18 120/69 96 Nasal 3.0 Cannula 09/02 0616 3.0 09/02 0343 97.5 109 20 110/59 96 Nasal 3.0 Cannula 09/02 0213 3.0 09/01 2308 98.1 75 20 96/59 98 Nasal 3.0 Cannula 09/01 1912 3.0 09/01 1837 97.5 86 20 116/66 94 Nasal Cannula I&O 09/02 0000 03/01 1600 09/01 0800 Intake Total 90 1233 Output Total 425 1450 450 Balance -425 -1360 783 LAB Results Laboratory Tests 09/02 0609 Chemistry Plasma Sodium (136 - 145 mmol/L) 134 Plasma Potassium (3.5 - 5.1 mmol/L) 3.8 Plasma Chloride (98 - 107 mmol/L) 100 CO2 (Enzymatic) (21 - 32 mmol/L) 30 BUN (7 - 18 mg/dL) 19 Creatinine (0.6 - 1.3 mg/dL) 0.8 Est GFR ( Amer) (mL/min) >60 Est GFR (Non-Af Amer) (mL/min) >60 Glucose (70 - 110 mg/dL) 151 Plasma Calcium (8.5 - 10.1 mg/dL) 8.6 Plasma Magnesium (1.8 - 2.4 mg/dL) 1.6 Hematology WBC (4.5 - 11.5 K/uL) 9.2 RBC (4.50 - 5.90 M/uL) 3.23 Hgb (13.5 - 17.5 gm/dL) 10.6 Hct (41.0 - 53.0 %) 32.2 MCV (80 - 100 fL) 100 MCH (26 - 34 pg) 33 RDW (11.6 - 14.8 %) 16.5 Neut % (Auto) (50 - 75 %) 76.9 Lymph % (Auto) (25 - 40 %) 21.2 [place] % (Auto) (3 - 14 %) 0.8 Eos % (Auto) (0 - 4 %) 0.5 Baso % (Auto) (0 - 2 %) 0.6 Plt Count, EDTA (150 - 400 K/uL) 241 PUBS MCHC (31 - 37 g/dL) 33 Assessment and Plan Problem List 1. Pneumonia Status Acute Onset Date Unknown Plan -improved -Patient on PO meds -discharge in am if stable 2. Anemia Status Acute Onset Date Unknown Plan -Mild -Stable 3. Hypomagnesemia Status Acute Onset Date Unknown Plan -Mild -magnesium 1.6 -oral supplement 4. Hyponatremia Status Acute Onset Date Unknown Plan -mild -Sodium 134, stable 5. Diabetes mellitus Status Acute Onset Date Unknown Plan -Blood glucose mildly elevated -Improved with addition of Metformin -Discharge home on sliding scale, Metformin -patients trained priot to hospitalization in insulin administration. 6. COPD exacerbation Plan -Patients status improved -O2 requirement stable -No significant bronchospasm -Wean oral corticosteroids Current status: Fair, improved Anticipated discharge date: Anticipated discharge in a.m. Anticipated discharge placement: Home Patient care time: Time spent in chart review, patient interview, physical exam, CPOE, and care documentation: 25 minutes Visit to patient today: 2 Complexity of care: Moderate E&M Codes Rounding: Inpt-Moderate/[id number]
[2016-09-02 18:00] VITALS: BP 114/80
[2016-09-02 22:23] VITALS: BP 121/73
[2016-09-03 02:55] VITALS: BP 107/72
[2016-09-03 05:57] VITALS: BP 114/70
[2016-09-03 11:04] VITALS: BP 106/65
[2016-09-03] MEDS ORDERED: HUMALOG KWI100 MG/ML SC (13:18)
[2016-09-03] MEDS ORDERED: ADVAIR DISKU1 IN (13:18)
[2016-09-03] MEDS ORDERED: PREDNISONE20 MG PO (13:18)
[2016-09-03] MEDS ORDERED: AMOXICILLIN/CL875 MG PO (13:18)
[2016-09-03] MEDS ORDERED: IPRATROPIUM BROMIDE/ IN (13:18)
[2016-09-03] MEDS ORDERED: MAPAP325 MG PO (13:18)
--- NOTE | 2016-09-03 13:19 | Provider's Discharge Care Plan ---
Problem, Goal, Plan Problem List 1. Pneumonia Goals: Improve disease control, Prevent disease progress Instructions: Follow up as directed, Take meds as directed, Recheck chest x- ray in 4 weeks 2. COPD exacerbation Goals: Improve disease control, Prevent disease progress Instructions: Follow up as directed, Take meds as directed 3. Diabetes mellitus Goals: Improve disease control, Prevent disease progress Instructions: Follow up as directed, Take meds as directed
[2016-09-03] MEDS ORDERED: O2 IN (13:22)
--- NOTE | 2016-09-17 12:26 | Discharge Summary ---
Discharge Summary Report Admit Date 08/27/16 Discharge Date 09/03/16 Admission Diagnosis 1. Pneumonia 2. COPD 3. Diabetes Mellitus Discharge Diagnosis 1. Pneumonia 2. COPD 3. Diabetes Mellitus 4. Anemia 5. Hyponatremia Brief History The patient is a 81-year-old white male with a significant past medical history of O2 dependent COPD, hypertension, osteoporosis, type 2 diabetes mellitus, who presented to [facility] emergency department on the day of admission secondary to complaints of shortness of breath. [facility] ER evaluation was consistent with findings of left-sided pneumonia. Secondary to the above, the patient was admitted by Gricelda Aden M.D. for further evaluation and treatment. For other history present illness, past medical history, family history, social history, review of systems, and admission physical examination please see the patient's history and physical examination and ER visit note in the patient's medical record. Hospital Course The follow problems and their management were noted during the patient's hospitalization: 1. Pneumonia The patient was admittted with findings of pneumonia. He was treated with IV followed by oral medications. The patient was afebrile with normalized WBC and procalcitonin at discharge. Patient was discharged on Augmentin 875mg po bid to complete a full course of antimicrobial therapy. 2. COPD Patient withongstanding severe oxygen dependent COPD. Status stable at discharge. Patient discharged on Duoneb q 6 hours, Advair 250/50 1 inh bid, prednisone taper 20mg po daily and oxygen supplementation. 3. Diabetes Mellitus Patient with admission diagnosis of diabetes mellitus. Blood glucose mildly elevated on while on steroids at discharge. Patient discharges on Humalog sliding scale and metformin. Follow up with PCP as scheduled for adjustments in therapy. FBS on discharge 112 mg/dl. 4. Anemia Mild. Stable. H/H on discharge 10.6/32.2. Follow up with PCP. 5. Hyponatremia Mild. Stable. No dietary restrictions. OP follow up with PCP. General Appearance Alert, Cooperative, No acute distress HEENT PERRLA, EOMI, Mucous membran moist/pink Lungs Scattered rhonchi, no wheezing, poor but stable air movement Cardiovascular Regular Rate, Normal S1, Normal S2 Abdomen Normal bowel sounds, Soft, No tenderness Neurological Strength at 5/5 X4 ext, Cranial nerves 3-12 NL Psych/Mental Status Mood NL Discharge Instructions/Meds For other recommendations regarding discharge diet, activity, follow-up, and discharge medications please see the patient's discharge instructions. Discharge condition: Fair, improved-stable Greater than 30 minutes was spent in the patient's discharge preparation The patient was interviewed and examined on the day of discharge.
--- NOTE | 2016-09-17 12:26 | Discharge Summary ---
Discharge Summary Report Admit Date 08/27/16 Discharge Date 09/03/16 Admission Diagnosis 1. Pneumonia 2. COPD 3. Diabetes Mellitus Discharge Diagnosis 1. Pneumonia 2. COPD 3. Diabetes Mellitus 4. Anemia 5. Hyponatremia Brief History The patient is a 81-year-old white male with a significant past medical history of O2 dependent COPD, hypertension, osteoporosis, type 2 diabetes mellitus, who presented to [facility] emergency department on the day of admission secondary to complaints of shortness of breath. [facility] ER evaluation was consistent with findings of left-sided pneumonia. Secondary to the above, the patient was admitted by Gricelda Aden M.D. for further evaluation and treatment. For other history present illness, past medical history, family history, social history, review of systems, and admission physical examination please see the patient's history and physical examination and ER visit note in the patient's medical record. Hospital Course The follow problems and their management were noted during the patient's hospitalization: 1. Pneumonia The patient was admittted with findings of pneumonia. He was treated with IV followed by oral medications. The patient was afebrile with normalized WBC and procalcitonin at discharge. Patient was discharged on Augmentin 875mg po bid to complete a full course of antimicrobial therapy. 2. COPD Patient withongstanding severe oxygen dependent COPD. Status stable at discharge. Patient discharged on Duoneb q 6 hours, Advair 250/50 1 inh bid, prednisone taper 20mg po daily and oxygen supplementation. 3. Diabetes Mellitus Patient with admission diagnosis of diabetes mellitus. Blood glucose mildly elevated on while on steroids at discharge. Patient discharges on Humalog sliding scale and metformin. Follow up with PCP as scheduled for adjustments in therapy. FBS on discharge 112 mg/dl. 4. Anemia Mild. Stable. H/H on discharge 10.6/32.2. Follow up with PCP. 5. Hyponatremia Mild. Stable. No dietary restrictions. OP follow up with PCP. General Appearance Alert, Cooperative, No acute distress HEENT PERRLA, EOMI, Mucous membran moist/pink Lungs Scattered rhonchi, no wheezing, poor but stable air movement Cardiovascular Regular Rate, Normal S1, Normal S2 Abdomen Normal bowel sounds, Soft, No tenderness Neurological Strength at 5/5 X4 ext, Cranial nerves 3-12 NL Psych/Mental Status Mood NL Discharge Instructions/Meds For other recommendations regarding discharge diet, activity, follow-up, and discharge medications please see the patient's discharge instructions. Discharge condition: Fair, improved-stable Greater than 30 minutes was spent in the patient's discharge preparation The patient was interviewed and examined on the day of discharge.
== END 2016-09-03 14:30 | disposition home health service (06) | DRG 190 ==
LOC: ACUTE2 SRH 15:38
PROVIDERS: ADMIT Internal Medicine
DX: J44.0 Chronic obstructive pulmonary disease with (acute) lower respiratory infection (principal); J18.9 Pneumonia, unspecified organism; J44.1 Chronic obstructive pulmonary disease with (acute) exacerbation; Y95 Nosocomial condition; E87.1 Hypo-osmolality and hyponatremia; R09.02 Hypoxemia; E86.0 Dehydration; E11.65 Type 2 diabetes mellitus with hyperglycemia; E83.42 Hypomagnesemia; D64.9 Anemia, unspecified; E83.52 Hypercalcemia; I10 Essential (primary) hypertension; Z79.84 Long term (current) use of oral hypoglycemic drugs; Z99.81 Dependence on supplemental oxygen
CPT/HCPCS: 85241; 85244; 90047; 90065; 90074; 90098; 90100; 91295; 91320; 91583; 91585; 92710; 92720; 93004; 95059; 95061

== ENCOUNTER 2016-09-29 11:58 | Inpatient (IN) | payer OTHER ==
[2016-09-29] VITALS (8 sets, daily range): BP systolic 85–121; BP diastolic 39–71
[~2016-09-29] VITALS: Ht 172.7 cm; Wt 49.4 kg
[~2016-09-29 11:58] MED LIST changes: +ADVAIR DISKU1 IN; +AMOXICILLIN/CL875 MG PO; +HUMALOG KWI100 MG/ML SC; +IPRATROPIUM BROMIDE/ IN; +MAPAP325 MG PO; +O2 IN; +PREDNISONE20 MG PO
--- NOTE | 2016-09-29 12:57 | DIAGNOSTIC IMAGING REPORT ---
PROCEDURE: XR CHEST 1 VIEW INDICATION: SHORTNESS OF BREATH TECHNIQUE: Portable AP view 12:47 p.m. COMPARISON: Chest 08/29/2016 FINDINGS: Increase in right lower lobe infiltrate. Left lung remains clear. IMPRESSION: 1. Increase in the right lower lobe infiltrate.
--- NOTE | 2016-09-29 15:02 | ED ORDER SUMMARY ---
..... Patient: AILEEN CAMPBELL OrderSheet [facility] VisitID: [id number] [address] [place] [address] 81y, M Registration Date/Time: 09/29/2016 ORDER SHEET Weight: 53.0 kg (measured) Allergies: None GENERAL ORDERS: Chest 1V Urgent (12:15 09/29/2016 Sierra BARNES) (Ack 12:19 LNations ER Tech1) (12:46 LNations ER Tech1) Shop Repairer (Continuous) (12:16 09/29/2016 Sierra BARNES) (Ack 12:18 LNations ER Tech1) (12:26 SBalde R.N.) Cardiac Panel Stat (12:16 09/29/2016 Sierra BARNES) (Ack 12:19 LNations ER Tech1) (13:46 SBalde R.N.) BNP Urgent (12:16 09/29/2016 Sierra BARNES) (Ack 12:19 LNations ER Tech1) (13:46 SBalde R.N.) ABG (G) Urgent (12:16 09/29/2016 Sierra BARNES) (Ack 12:19 LNations ER Tech1) (12:26 SBalde R.N.) Oxygen (2 L/min) (NC) (12:16 09/29/2016 Sierra BARNES) (Ack 12:18 LNations ER Tech1) (12:26 SBalde R.N.) Pulse oximeter (12:16 09/29/2016 Sierra BARNES) (Ack 12:18 LNations ER Tech1) (12:26 SBalde R.N.) EKG - ER Stat (12:16 09/29/2016 Sierra BARNES) (Ack 12:19 LNations ER Tech1) (12:36 LNations ER Tech1) MEDICATION ORDERS: IV FLUIDS: IV NS : initial bolus 1000 mL (1000 mL/hr), then none - (NOW) (12:16 09/29/2016 Sierra BARNES) (Ack 12:26 SBalde R.N.) (14:52 SBalde R.N.) Rocephin IV 2 gm/50mL (NOW) (13:45 09/29/2016 Sierra BARNES) (Ack 13:48 Owen R.N.) (13:49 Duniae R.N.) Zithromax IV 500 mg/250 mL (NOW) (13:45 09/29/2016 Sierra BARNES) (Cancelled: Physician Order14:59 Owen R.N.) Zosyn IV 3.375 gm/50mL (NOW) (15:00 09/29/2016 Owen R.N. verbal order read back to Sierra BARNES) (16:07 SBrafael R.N.) ORDER SHEET NOTES: [Electronically signed by Sharon Lizarraga R.N. (16:47 09/29/2016)] [Electronically signed by Lupe Dial MD (18:25 10/04/2016)] [Electronically locked/signed by Sharon Lizarraga R.N. (16:47 09/29/2016)]
--- NOTE | 2016-09-29 15:02 | ED NURSING NOTES ---
Clinical Report - Nurses [place] [address] [place] [address] 09/29/2016 11:59 [id number] Triage time 12:Sep 29 2016. Acuity: LEVEL 2. Chief Complaint: SHORTNESS OF BREATH and DIFFICULTY BREATHING. Alert. No acute distress. (resp distress). --12:18 Sharon Lizarraga R.N. 12:04 09/29/16. BP: 123/56. HR: 87. RR: 28. O2 saturation: 96%. --12:18 Sharon Lizarraga R.N. Weight: 53 kg measured. Height/Length: 72 inches Estimated. BMI: 15.9. --12:04 Sharon Lizarraga R.N. Medications Advair Diskus Inhalation. Amlodipine Besy-Benazepril HCl Oral 5/10 mg, daily. AREDS 2 OPTH. Fish Oil. Potassium Chloride Oral 10 meq, daily. Pravastatin Sodium Oral 20 mg, daily. --12:14 Sharon Lizarraga R.N. Insulin 5 units , 2x a day ( thinks it's Novolog, not sure). --12:17 Sharon Lizarraga R.N. Medication/allergy information source: the patient's spouse. --12:18 Sharon Lizarraga R.N. Allergies None. --12:14 Sharon Lizarraga R.N. History Arrived by EMS, and ([place]). Historian: patient. Accompanied by family. Primary physician (Dr. Redman). The patient has had a cough. 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 Medications given- Solu-Medrol (Albuterol 5mg Neb/500mcg Atrovent - Duoneb). PAST MEDICAL HX: Diabetes mellitus. Chronic obstructive pulmonary disease. --12:18 Sharon Lizarraga R.N. PROBLEMS: Hyponatremia. Dehydration. Hypercalcemia. Back Pain. Hypertension. Hyperlipidemia. Osteoporosis. Emphysema. Fx vertebrae. --12:18 Sharon Lizarraga R.N. Pneumonia [RuleOut]. --12:18 Sharon Lizarraga R.N. ADDITIONAL SURGERIES: Lung Surgery. Prostatectomy. Tonsillectomy & Adenoidectomy. --12:18 Sharon Lizarraga R.N. Interventions ID band on patient. To room. --12:18 Sharon Lizarraga R.N. PHYSICAL ASSESSMENT To room via stretcher. RESPIRATORY: Moderate respiratory distress. The patient can speak a few words at a time. Decreased breath sounds. CVS: Capillary refill less than 2 seconds. SKIN: Skin is warm and dry. ( left leg has edema, states it's normal, not new.). --12:25 Sharon Lizarraga R.N. NURSING PROGRESS NOTES 3 liters by nasal cannula reapplied (pt on home oxygen). Monitoring of patient in place; playground monitor- Lead II. Patient gowned. ( RT here on pt's arrival. ABG being drawn. Lab here for regular blood draw, pt arrived with an IV. Neb in progress on pt's arrival. Pt has already received meds COSTUME SEAMSTRESS, see EMS report. Provider at bedside on pt's arrival. Family here also.). --12:24 Sharon Lizarraga R.N. 12:21 09/29/16. BP: 118/55. HR: 90. RR: 28. O2 saturation: 94%. Pain level now 0/10. --12:24 Sharon Lizarraga R.N. EKG time: (12:36). EKG was performed by a tech and shown to the ED physician. --12:36 Sharon Lizarraga R.N. The patient is resting quietly. ( Repositioned. Right side. Pillows propped up to keep pt off his back. Noted to have multiple sore on his spine and buttocks. Family aware.). --13:46 Sharon Lizarraga R.N. 13:49 09/29/2016 Site #1 started prior to arrival by EMS via IV in the right wrist with an 18g angiocath; one attempt. Saline lock flushed with 10 mL saline. --13:49 Sharon Lizarraga R.N. 13:49 09/29/2016 Started 2 gm of Rocephin (CefTRIAXone Sodium) IVPB in bag #1 50 mL; at 100 mL/hr over 30 minute(s) via site #1; Completed per protocol. --13:49 Sharon Lizarraga R.N. ( Wound Care Consult to Jane johnny. She will follow up tomorrow, in the meantime she will have staff take pictures and follow through.). --13:58 Sharon Lizarraga R.N. 13:58 09/29/16. BP: 95/36. HR: 87. RR: 16. O2 saturation: 96%. Pain level now 0/10. --13:58 Sharon Lizarraga R.N. ( H/P forms on chart). --14:21 Niyah Santiago, ER Tech1 14:52 09/29/2016 Started bag #1 1000 mL IV Fluids IV NS (Saline); at 1000 mL/hr over 1 hour(s) via site #1. Completed per protocol. --14:52 Sharon Lizarraga R.N. ( Per Dr. Arredondo, cancel Zithromax and give Zosyn instead. Dr. Dial aware and ok'd this verbal order. First dose to hang in the ER.). --15:02 Sharon Lizarraga R.N. 15:03 09/29/16. BP: 107/43. HR: 91. --15:03 Sharon Lizarraga R.N. ( overview faxed to ICU). --15:54 Niyah Santiago, ER Tech1 16:06 09/29/2016 Started 3.375 gm of Zosyn (Piperacillin Sod-Tazobactam So) IVPB in bag #1 50 mL; at 100 mL/hr over 30 minute(s) via site #1 via IV pump. Completed per protocol. --16:07 Sharon Lizarraga R.N. 16:30 09/29/2016 Zosyn IVPB Discontinued: bag #1 infused. Total amount infused: 50 mL. IV patency established. IV site checked: no pain, redness, or swelling. IV flushed thoroughly. --16:47 Sharon Lizarraga R.N. Intake & Output IV fluids: 550. Urine: 200, with return of raissa-colored urine. --15:03 Sharon Lizarraga R.N. DISPOSITION / DISCHARGE Admitted to the Critical Care Unit. Report was given. (GENEVIEVE Sánchez). --16:08 Sharon Lizarraga R.N. 16:09 09/29/16. BP: 104/48. HR: 97. RR: 22. O2 saturation: 94%. --16:11 Sharon Lizarraga R.N. Departure time: 16:Sep 29 2016. --16:11 Sharon Lizarraga R.N. Locked/Released at 09/29/2016 16:47 by Sharon Lizarraga R.N.
--- NOTE | 2016-09-29 15:02 | ED CLINICAL REPORT ---
Clinical Report - Physicians/Mid Levels [facility] [address] [place] [address] 09/29/2016 11:59 Patient: AILEEN CAMPBELL Time Seen: 12:03. Arrived- By ambulance. Historian- patient, EMS personnel and family. HISTORY OF PRESENT ILLNESS Chief Complaint: DYSPNEA and HISTORY OF CHRONIC OBSTRUCTIVE PULMONARY DISEASE. This started worse the past 2-3 days and is still present. The dyspnea is described as moderate. The dyspnea is worsened by exertion (nothing improves). The patient has had a mild cough . No change in baseline sputum, wheezing and dyspnea on exertion. No sputum production, fever, sweating episodes or chills. No chest pain or discomfort, calf pain, foot swelling or orthopnea. No anxiety, dizziness, tingling, numbness or palpitations. (Pt was given a duoneb and IV Solu-medrol en-route. He is still finishing his neb from EMS.). Similar symptoms previously: ( PT was hospitalized for pneumonia several weeks ago.). Recent medical care: Not recently seen/assessed. REVIEW OF SYSTEMS The patient has not had weight loss. No muscle aches, eye irritation, sore throat, nasal discharge or sinus drainage. No nausea, vomiting, abdominal pain, diarrhea or black stools. No bloody stools, headache, fainting episodes, blurred vision or difficulty with urination. No skin rash, enlarged lymph nodes or joint pain. All systems otherwise negative, except as recorded above. PAST HISTORY Problems: Dehydration. Diabetes Mellitus. Hypercalcemia. Hypertension. Hyperlipidemia. Osteoporosis. COPD - Chronic Obstructive Pulmonary Disease. Fx vertebrae. Additional Surgeries: Lung Surgery. Prostatectomy. Tonsillectomy & Adenoidectomy. SOCIAL HISTORY Former smoker. No alcohol use or drug use. ADDITIONAL NOTES The nursing notes have been reviewed. PHYSICAL EXAM Vital Signs: 09/29/2016 12:12 Temp: 97.2 F. 09/29/2016 12:04 BP: 123/56. HR: 87. RR: 28. O2 saturation: 96%. Have been reviewed. Appearance: Alert. Patient in moderate distress. Eyes: Pupils equal, round and reactive to light. Eyes normal inspection. ENT: Nose normal. Neck: Normal inspection. CVS: Normal heart rate and rhythm. Heart sounds normal. Pulses normal. Respiratory: Moderate respiratory distress with accessory muscle use and tachypnea. Speaks short phrases. Mildly prolonged expirations. Moderately decreased air movement diffusely over both lungs. Expiratory mild bilateral wheezes diffusely. Abdomen: Soft and nontender. Back: Normal inspection. Skin: Skin warm and dry. Normal skin color. No rash. Normal skin turgor. Extremities: Extremities exhibit normal ROM. No lower extremity edema. Neuro: No motor deficit. No sensory deficit. (PT answers questions.). LABS, X-RAYS, AND EKG EKG: EKG time: (1236). Normal sinus rhythm. Rate: 94. Normal MARILOU. Normal QRS complex. Incomplete RBBB. Normal axis. Normal QT and QTc. EKG unchanged when compared with prior EKG. The study has been interpreted contemporaneously by me. The study has been independently viewed by me. The EKG appears to be a good tracing. I agree with and confirm the computer reading of the EKG. Rhythm Strip #1: Rate= 96. Normal sinus rhythm. Regular rhythm. Narrow QRS complexes. No ectopy. Conduction normal. Normal ST segments and T waves. The study was interpreted by me. Chest X-ray: Infiltrate present. Normal heart size. Mediastinum normal. Great vessels normal. Soft tissues normal. No fracture. No bony lesion present. Views: AP (portable). Technique: good. The X-rays were independently viewed by me, interpreted by the radiologist and contemporaneously by me and discussed with the radiologist. Prior films were not available for comparison. Laboratory Tests: CBC w Diff: (STEPHANIA: 09/29/2016 12:30) ( MsgRcvd 09/29/2016 13:41) Final results Test Result Flag Units (Reference) WHITE BLOOD COUNT 15.6 H K/uL (4.5-11.5) CORRECTED WBC 15.4 K/uL RED BLOOD COUNT 3.16 L M/uL (4.50-5.90) HEMOGLOBIN 10.6 L gm/dL (13.5-17.5) HEMATOCRIT 32.2 L % (41.0-53.0) MEAN CELL VOLUME 102 H fL (80-100) MEAN CORPUSCULAR HGB 34 pg (26-34) MEAN CORPUSCULAR HGB CONC 33 g/dL (31-37) RED CELL DISTRIBUTION WIDTH 20.3 H % (11.6-14.8) PLATELET COUNT 166 K/uL (150-400) LYMPH % 43.4 H % (25-40) MONO % 4.6 % (3-14) GRANULOCYTE % 52.0 POLY % 71 % (50-75) BAND % 0 % (0-8) LYMPH 26 % (25-40) MONO 3 % (3-14) EOSINOPHIL % 0 % (0-4) BASOPHIL % 0 % (0-2) METAMYELOCYTE % 0 % (0-1) MYELOCYTE 0 % (0-1) NUCLEATED RED BLOOD CELL 1 (0-1) OTHER CELL TYPE 0 POLYCHROMASIA 1+ POIKILOCYTOSIS 1+ ANISOCYTOSIS 2+ MACROCYTOSIS 3+ OCT COMMENT SMUDGE CELLS PRESENT BNP: (STEPHANIA: 09/29/2016 12:30) ( [facility]/29[facility]2016 13:11) Final results Test Result Flag Units (Reference) B-TYPE NATRIURETIC PEPTIDE 150 H pg/ml (5-100) CHEM 13 PANEL: (STEPHANIA: 09/29/2016 12:30) ( [facility] 09/29/2016 13:16) Final results Test Result Flag Units (Reference) GLUCOSE 187 H mg/dL (70-110) BUN 24 H mg/dL (7-18) CREATININE 0.7 mg/dL (0.6-1.3) Estimated GFR >60 mL/min Estimated GFR- >60 mL/min Note: Persistent reduction over 3 months in eGFR<60 mL/min/1.73 m2 defines CKD. Patients with eGFR values>=60 mL/min/1.73 m2 may also have CKD if evidence ofpersistent proteinuria. Additional information may be foundat www.kidney.org. SODIUM 130 L mmol/L (136-145) POTASSIUM 5.1 mmol/L (3.5-5.1) CHLORIDE 98 mmol/L (98-107) CARBON DIOXIDE 26 mmol/L (21-32) CALCIUM 10.5 H mg/dL (8.5-10.1) TOTAL PROTEIN 9.3 H g/dL (6.4-8.2) ALBUMIN 2.3 L g/dL (3.3-5.0) BILIRUBIN, TOTAL 0.7 mg/dL (0.0-1.0) ALKALINE PHOSPHATASE 164 H U/L (46-116) AST (SGOT) 98 H U/L (15-37) ALT (SGPT) 52 U/L (12-78) MAGNESIUM 2.3 mg/dL (1.8-2.4) CPK 20 L U/L (24-260) TROPONIN I <0.05 L ng/mL (0.00-1.5) TROPONIN REFERENCE RANGE:<0.1 NEGATIVE0.1-1.5 INDETERMINANT>1.5 POSITIVE ABG: (STEPHANIA: 09/29/2016 12:16) ( MsgRcvd 09/29/2016 12:38) Final results Test Result Flag Units (Reference) FIO2 36 % (20-101) ABG MODE OF DELIVERY NC MODIFIED JHOAN TEST POSITIVE? YES LITERS PER MIN. 3 L/MIN (0-20) ARTERIAL BLOOD GAS SITE RT RADIAL ARTERIAL BLOOD GAS pH 7.47 H (7.35-7.45) ABG PCO2 36.7 mmHg (35-45) ABG PO2 74.7 mmHg (60.0-80.0) ABG BASE EXCESS 3.0 H mmol/L (-6.0--6.0) ABG HCO3 26.9 H mmol/L (20.0-26.0) ABG TCO2 28.0 mmol/L (24.0-30.0) ABG FhAwO2u 109.5 H mmHg (7.0-14.0) *NOTE: Normal rangeis based on aFIO2 of 21% ABG SAT O2 95.7 % (95.1-100.0) ABG TOTAL HEMOGLOBIN 9.8 L g/dL (14.0-18.0) ABG O2 HEMOGLOBIN 94.1 L % (95.0-100.0) ABG CARBOXYHEMOGLOBIN 1.6 H % (0.5-1.5) ABG METHEMOGLOBIN 0.1 L % (0.4-1.5) ABG RHEMOGLOBIN 4.2 % . Pulse Oximetry: 09/29/2016 12:04 O2 saturation: 96%. (FIO2 - room air). Interpretation: normal. PROGRESS AND PROCEDURES Course of Care: PT was evaluated by myself, immediately upon arrival in the ED. He had received IV steroids and nebs en-route, and was still finishing his duoneb. He was worked up for his sx, and found to have worsened pneumonia, and was started on abx for this (first Rocephin, then Zosyn). Pt did become calmer after breathing treatments, though respirations were still labored. Wheezing had largely resolved, and pt had good air movement through his lungs. I felt pt should be admitted to the CCU, given his respiratory difficulties. Critical care performed (45 minutes). Time includes: direct patient care, patient reassessment, coordination of patient care, interpretation of data (laboratory data, pulse oximetry, arterial blood gases, chest xrays, prior electrocardiograms and cardiac output measurements), review of patient's medical records, medical consultation, family consultation regarding treatment decisions and documentation of patient care. The patient required critical care due to the acute impairment of vital organ systems (respiratory) and a high probability of imminent and life threatening deterioration. Multiple emergent and urgent interventions were required to prevent sudden life threatening deterioration. Discussed case with hospitalist, Leo). Reviewed test results and need for additional work-up. Agreed upon treatment plan and decision to admit. Health care provider will see patient in ED. Patient counseled in person regarding the patient's condition, test results and diagnosis. Old medical records reviewed. Disposition: Admitted to the Critical Care Unit. Condition: stable and serious. CLINICAL IMPRESSION Acute exacerbation of COPD. Bacterial pneumonia. Vital signs recorded and reviewed; empiric antibiotics given in the ED. (Electronically signed by Lupe Dial MD 10/04/2016 18:25)
--- NOTE | 2016-09-29 15:02 | ED ORDER SUMMARY ---
..... Patient: AILEEN CAMPBELL OrderSheet [facility] VisitID: [id number] [address] [place] [address] 81y, M Registration Date/Time: 09/29/2016 ORDER SHEET Weight: 53.0 kg (measured) Allergies: None GENERAL ORDERS: Chest 1V Urgent (12:15 09/29/2016 Sierra BARNES) (Ack 12:19 LNations ER Tech1) (12:46 LNations ER Tech1) Irrigation Technician (Continuous) (12:16 09/29/2016 Sierra BARNES) (Ack 12:18 LNations ER Tech1) (12:26 SBalde R.N.) Cardiac Panel Stat (12:16 09/29/2016 Sierra BARNES) (Ack 12:19 LNations ER Tech1) (13:46 SBalde R.N.) BNP Urgent (12:16 09/29/2016 Sierra BARNES) (Ack 12:19 LNations ER Tech1) (13:46 SBalde R.N.) ABG (G) Urgent (12:16 09/29/2016 Sierra BARNES) (Ack 12:19 LNations ER Tech1) (12:26 SBalde R.N.) Oxygen (2 L/min) (NC) (12:16 09/29/2016 Sierra BARNES) (Ack 12:18 LNations ER Tech1) (12:26 SBalde R.N.) Pulse oximeter (12:16 09/29/2016 Sierra BARNES) (Ack 12:18 LNations ER Tech1) (12:26 SBalde R.N.) EKG - ER Stat (12:16 09/29/2016 Sierra BARNES) (Ack 12:19 LNations ER Tech1) (12:36 LNations ER Tech1) MEDICATION ORDERS: IV FLUIDS: IV NS : initial bolus 1000 mL (1000 mL/hr), then none - (NOW) (12:16 09/29/2016 Sierra BARNES) (Ack 12:26 SBalde R.N.) (14:52 SBalde R.N.) Rocephin IV 2 gm/50mL (NOW) (13:45 09/29/2016 Sierra BARNES) (Ack 13:48 Owen R.N.) (13:49 Duniae R.N.) Zithromax IV 500 mg/250 mL (NOW) (13:45 09/29/2016 Sierra BARNES) (Cancelled: Physician Order14:59 Owen R.N.) Zosyn IV 3.375 gm/50mL (NOW) (15:00 09/29/2016 Owen R.N. verbal order read back to Sierra BARNES) (16:07 SBrafael R.N.) ORDER SHEET NOTES: [Electronically signed by Sharon Lizarraga R.N. (16:47 09/29/2016)] [Electronically signed by Lupe Dial MD (18:25 10/04/2016)] [Electronically locked/signed by Sharon Lizarraga R.N. (16:47 09/29/2016)]
--- NOTE | 2016-09-29 15:02 | ED NURSING NOTES ---
Clinical Report - Nurses [place] [address] [place] [address] 09/29/2016 11:59 [id number] Triage time 12:Sep 29 2016. Acuity: LEVEL 2. Chief Complaint: SHORTNESS OF BREATH and DIFFICULTY BREATHING. Alert. No acute distress. (resp distress). --12:18 Sharon Lizarraga R.N. 12:04 09/29/16. BP: 123/56. HR: 87. RR: 28. O2 saturation: 96%. --12:18 Sharon Lizarraga R.N. Weight: 53 kg measured. Height/Length: 72 inches Estimated. BMI: 15.9. --12:04 Sharon Lizarraga R.N. Medications Advair Diskus Inhalation. Amlodipine Besy-Benazepril HCl Oral 5/10 mg, daily. AREDS 2 OPTH. Fish Oil. Potassium Chloride Oral 10 meq, daily. Pravastatin Sodium Oral 20 mg, daily. --12:14 Sharon Lizarraga R.N. Insulin 5 units , 2x a day ( thinks it's Novolog, not sure). --12:17 Sharon Lizarraga R.N. Medication/allergy information source: the patient's spouse. --12:18 Sharon Lizarraga R.N. Allergies None. --12:14 Sharon Lizarraga R.N. History Arrived by EMS, and ([facility]). Historian: patient. Accompanied by family. Primary physician (Dr. Redamn). The patient has had a cough. 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 Medications given- Solu-Medrol (Albuterol 5mg Neb/500mcg Atrovent - Duoneb). PAST MEDICAL HX: Diabetes mellitus. Chronic obstructive pulmonary disease. --12:18 Sharon Lizarraga R.N. PROBLEMS: Hyponatremia. Dehydration. Hypercalcemia. Back Pain. Hypertension. Hyperlipidemia. Osteoporosis. Emphysema. Fx vertebrae. --12:18 Sharon Lizarraga R.N. Pneumonia [RuleOut]. --12:18 Sharon Lizarraga R.N. ADDITIONAL SURGERIES: Lung Surgery. Prostatectomy. Tonsillectomy & Adenoidectomy. --12:18 Sharon Lizarraga R.N. Interventions ID band on patient. To room. --12:18 Sharon Lizarraga R.N. PHYSICAL ASSESSMENT To room via stretcher. RESPIRATORY: Moderate respiratory distress. The patient can speak a few words at a time. Decreased breath sounds. CVS: Capillary refill less than 2 seconds. SKIN: Skin is warm and dry. ( left leg has edema, states it's normal, not new.). --12:25 Sharon Lizarraga R.N. NURSING PROGRESS NOTES 3 liters by nasal cannula reapplied (pt on home oxygen). Monitoring of patient in place; classroom monitor- Lead II. Patient gowned. ( RT here on pt's arrival. ABG being drawn. Lab here for regular blood draw, pt arrived with an IV. Neb in progress on pt's arrival. 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 Provider at bedside on pt's arrival. Family here also.). --12:24 Sharon Lizarraga R.N. 12:21 09/29/16. BP: 118/55. HR: 90. RR: 28. O2 saturation: 94%. Pain level now 0/10. --12:24 Sharon Lizarraga R.N. EKG time: (12:36). EKG was performed by a tech and shown to the ED physician. --12:36 Sharon Lizarraga R.N. The patient is resting quietly. ( Repositioned. Right side. Pillows propped up to keep pt off his back. Noted to have multiple sore on his spine and buttocks. Family aware.). --13:46 Sharon Lizarraga R.N. 13:49 09/29/2016 Site #1 started prior to arrival by EMS via IV in the right wrist with an 18g angiocath; one attempt. Saline lock flushed with 10 mL saline. --13:49 Sharon Lizarraga R.N. 13:49 09/29/2016 Started 2 gm of Rocephin (CefTRIAXone Sodium) IVPB in bag #1 50 mL; at 100 mL/hr over 30 minute(s) via site #1; Completed per protocol. --13:49 Sharon Lizarraga R.N. ( Wound Care Consult to Jane johnny. She will follow up tomorrow, in the meantime she will have staff take pictures and follow through.). --13:58 Sharon Lizarraga R.N. 13:58 09/29/16. BP: 95/36. HR: 87. RR: 16. O2 saturation: 96%. Pain level now 0/10. --13:58 Sharon iLzarraga R.N. ( H/P forms on chart). --14:21 Niyah Santiago, ER Tech1 14:52 09/29/2016 Started bag #1 1000 mL IV Fluids IV NS (Saline); at 1000 mL/hr over 1 hour(s) via site #1. Completed per protocol. --14:52 Sharon Lizarraga R.N. ( Per Dr. Arredondo, cancel Zithromax and give Zosyn instead. Dr. Dial aware and ok'd this verbal order. First dose to hang in the ER.). --15:02 Sharon Lizarraga R.N. 15:03 09/29/16. BP: 107/43. HR: 91. --15:03 Sharon Lizarraga R.N. ( overview faxed to ICU). --15:54 Niyah Santiago, ER Tech1 16:06 09/29/2016 Started 3.375 gm of Zosyn (Piperacillin Sod-Tazobactam So) IVPB in bag #1 50 mL; at 100 mL/hr over 30 minute(s) via site #1 via IV pump. Completed per protocol. --16:07 Sharon Lizarraga R.N. 16:30 09/29/2016 Zosyn IVPB Discontinued: bag #1 infused. Total amount infused: 50 mL. IV patency established. IV site checked: no pain, redness, or swelling. IV flushed thoroughly. --16:47 Sharon Lizarraga R.N. Intake & Output IV fluids: 550. Urine: 200, with return of raissa-colored urine. --15:03 Sharon Lizarraga R.N. DISPOSITION / DISCHARGE Admitted to the Critical Care Unit. Report was given. (GENEVIEVE Sánchez). --16:08 Sharon Lizarraga R.N. 16:09 09/29/16. BP: 104/48. HR: 97. RR: 22. O2 saturation: 94%. --16:11 Sharon Lizarraga R.N. Departure time: 16:Sep 29 2016. --16:11 Sharon Lizarraga R.N. Locked/Released at 09/29/2016 16:47 by Sharon Lizarraga R.N.
--- NOTE | 2016-09-29 16:30 | History & Physical Report ---
Admission Admit Date 09/29/16 Information Source Information Source: Self, Spouse/Partner Reliability: Good History Chief Complaint shortness of breath and fever History of Present Illness Patient is a 81 year old male with a pmh of diabetes, hypertension, osteoperosis , and dementia that is presenting with shortness of breath and pneumonia. Patient was recently admitted here approximately 1 month ago for the same complaints. Patient was treated for pneumonia and patient was discharged in relatively good health. As per the family the patient had never really returned to baseline and was lethargic and devoid of any energy. Patient additionally had diminished po intake and increasingly decreased mentation. Patient continued to progress in this direction. Patient became increasingly weak, and given his presentation the family brought him in for evaluation. Patient History 1. Pneumonia 2. Diabetes mellitus 3. COPD (chronic obstructive pulmonary disease) 4. Dehydration Social History Pt is a former smoker quit 25 years ago, he does not drink or use illicit substances. Patient lives at home with his , is able to pefrom all his daily adls with assistance currently. Family History Family history was reviewed; no changes noted. Medications and Allergies Medications Home Medications Amlodopine besylate 5 mg Advair insulin lantus 5 units bid KCL 10 meq daily pravastatin 20 mg daily Prednisone 1 mg daily Current Medications Sig/Rocky Start time Last Medication Dose Route Stop Time Status Admin Vancomycin HCl 750 MG Q12HR 09/30 0900 AC Sodium Chloride 250 ML IV Pantoprazole Sodium 40 MG DAILY@0600 09/30 0600 AC Sesquihydrate PO Piperacillin/ 50 ML Q6H 09/29 2200 AC Tazobactam/Dextrose IV Insulin Human Lispro See Dose ACHS 09/29 2100 AC Insts (1) SC Vancomycin HCl/ 200 ML 1800 09/29 1800 AC 09/29 Dextrose IV 09/29 1900 1808 Vancomycin HCl See Dose DAILY 09/29 1643 CAN Insts (2) IV Acetaminophen 650 MG Q4H PRN 09/29 1630 AC PO Albuterol/Ipratropium 3 ML RTQ6H PRN 09/29 1630 AC IN Morphine Sulfate 1 MG Q4H PRN 09/29 1630 AC IV Sodium Chloride 1,000 ML ASDIRECTED 09/29 1630 AC 09/29 IV 1808 Dose Instructions: (1)Insulin Human Lispro: LOW DOSE: ACCUCHECK AND SLIDING SCALE >>To change sliding scale DISCONTINUE this order and enter a NEW order. Thanks< (2)Vancomycin HCl: DOSING PER PHARMACY Allergies Coded Allergies: Latex (Mild, 09/29/16) LATEX ALLERGY WHEN IN SURGERY IN 2003 Review of Systems Constitutional Weakness, Malaise. Denies: Fever, Chills, Sweats, Other. Eyes Denies: Pain, Vision Change, Conjunctival Inflammation, Eyelid Inflammation, Redness, Other. ENT Nasal Discharge (occasional bleeding ). Denies: Ear Pain, Ear Discharge, Nose Pain, Nasal Congestion, Mouth Pain, Mouth Swelling, Throat Pain, Throat Swelling , Other. Respiratory SOB w/exertion. Denies: Cough, Dry, Wheezing, Hemoptysis, Pleuritic Pain, Sputum, Other. Cardiovascular Denies: Chest Pain, Palpitations, Orthopnea, PND, Edema, Light-headedness, Other. Gastrointestinal Denies: Nausea, Vomiting, Abdominal Pain, Diarrhea, Constipation, Melena, Hematochezia, Other. Genitourinary Denies: Dysuria, Frequency, Incontinence, Hematuria, Retention, Other. Musculoskeletal Denies: Neck Pain, Shoulder Pain, Arm Pain, Back Pain, Hand Pain, Leg Pain, Foot Pain, Other. Skin Denies: Rash, Lesions, Jaundice, Bruising, Other. Neurological Denies: Weakness, Numbness, Incoordination, Change in speech, Confusion, Seizures, Other. Physical Exam Vital Signs / I&Os Vital Signs Date Time Temp Pulse Resp B/P Pulse O2 O2 Flow FiO2 Ox Delivery Rate 09/29 1800 Nasal 3.0 Cannula 09/29 1800 89 25 97/39 96 Nasal 3.0 Cannula 09/29 1700 4.0 09/29 1700 96 33 104/54 95 Nasal 4.0 Cannula 09/29 1638 98.4 100 30 121/49 100 Nasal 4.0 Cannula 09/29 1244 3.0 09/29 1227 3.0 General Appearance Alert, Cooperative, Mild distress HEENT Atraumatic, PERRLA, EOMI, Moist mucous membranes Lungs - basilar ronchi Cardiovascular Regular rate and rhythm, Normal S1 and S2, No murmurs, gallops, rubs Abdomen Normal bowel sounds, Soft, No tenderness Extremities No cyanosis, Normal pulses, No tenderness, - bilateral pitting edema of the dorsum of bilateral feet Skin - sacral wound and pressure ulcer over spine present on admission Neurological Normal speech, Sensation intact, Cranial nerves intact, No lateralizing signs, - profound weakness in all extremities - no motor or sensory deficits LAB Results Laboratory Tests 09/29 09/29 09/29 1216 1230 1230 Blood Gas Sample Site RT RADIAL Total CO2 (24.0 - 30.0 mmol/L) 28.0 ABG pH (7.35 - 7.45) 7.47 ABG pCO2 at Pt Temp (35 - 45 mmHg) 36.7 ABG pO2 at Pt Temp (60.0 - 80.0 mmHg) 74.7 ABG HCO3 (20.0 - 26.0 mmol/L) 26.9 ABG O2 Sat Calc/Daniel (95.1 - 100.0 %) 95.7 ABG Base Excess (-6.0 - -6.0 mmol/L) 3.0 ABG Reduced Hgb (%) 4.2 ABG Carboxyhemoglobin (0.5 - 1.5 %) 1.6 ABG Methemoglobin (0.4 - 1.5 %) 0.1 Luis M Test YES Other Total Hgb (14.0 - 18.0 g/dL) 9.8 A-a O2 Gradient (7.0 - 14.0 mmHg) 109.5 Hgb O2 Saturation (95.0 - 100.0 %) 94.1 O2 Liters/Min (0 - 20 L/MIN) 3 Vent Mode NC FiO2 (20 - 101 %) 36 Chemistry Plasma Sodium (136 - 145 mmol/L) 130 Plasma Potassium (3.5 - 5.1 mmol/L) 5.1 Plasma Chloride (98 - 107 mmol/L) 98 CO2 (Enzymatic) (21 - 32 mmol/L) 26 BUN (7 - 18 mg/dL) 24 Creatinine (0.6 - 1.3 mg/dL) 0.7 Est GFR ( Amer) (mL/min) >60 Est GFR (Non-Af Amer) (mL/min) >60 Glucose (70 - 110 mg/dL) 187 Plasma Calcium (8.5 - 10.1 mg/dL) 10.5 Plasma Magnesium (1.8 - 2.4 mg/dL) 2.3 Total Bilirubin (0.0 - 1.0 mg/dL) 0.7 AST (15 - 37 U/L) 98 ALT (12 - 78 U/L) 52 Alkaline Phosphatase (46 - 116 U/L) 164 Creatine Kinase (24 - 260 U/L) 20 Troponin (0.00 - 1.5 ng/mL) <0.05 B-Natriuretic Peptide (5 - 100 pg/ml) 150 Total Protein (6.4 - 8.2 g/dL) 9.3 Albumin (3.3 - 5.0 g/dL) 2.3 Hematology WBC (4.5 - 11.5 K/uL) 15.6 Corrected WBC (auto) (K/uL) 15.4 RBC (4.50 - 5.90 M/uL) 3.16 Hgb (13.5 - 17.5 gm/dL) 10.6 Hct (41.0 - 53.0 %) 32.2 MCV (80 - 100 fL) 102 MCH (26 - 34 pg) 34 RDW (11.6 - 14.8 %) 20.3 Gran % 52.0 Neut % (Auto) (50 - 75 %) 71 Lymph % (Auto) (25 - 40 %) 26 [place] % (Auto) (3 - 14 %) 3 Eos % (Auto) (0 - 4 %) 0 Baso % (Auto) (0 - 2 %) 0 Band Neutrophils % (0 - 8 %) 0 Metamyelocytes % (0 - 1 %) 0 Myelocytes (0 - 1 %) 0 Nucleated RBCs (0 - 1) 1 Other Cell Type SMUDGE CELLS PRESENT Plt Count, EDTA (150 - 400 K/uL) 166 Polychromasia 1+ Poikilocytosis (manual 1+ Anisocytosis (manual) 2+ Macrocytosis (manual) 3+ PUBS MCHC (31 - 37 g/dL) 33 Microbiology Date/Time Procedure - Status Source Growth 09/29 1700 MRSA Screen - RECD NOSE Assessment and Plan Problem List 1. Pneumonia Status Acute Onset Date Unknown Plan - Pt is presenting with RLL infiltrate that does not look improved compared to before - pt given his recent admission will be placed on vancomycin and zosyn - vital monitoring as per ccu protocol - will begin aggressive hydration with normal saline - will follow up on lactate level - 2. COPD exacerbation Plan - good breath sounds bilaterally - no evidence of poor air exhcange - duonebs q8 hours 3. Diabetes mellitus Status Acute Onset Date Unknown Plan - will start sliding scale coverage - will hold metformin for the time being 4. Dehydration Plan - pt has been having decreased po intake over the past few days - evidence of dehydration on BUN - will aggressively rehdyrate with normal saline
[2016-09-29] MEDS ORDERED: PREDNISONE1 MG PO (18:21)
[2016-09-29] MEDS ORDERED: INSULIN SC (18:23)
[2016-09-30] VITALS (11 sets, daily range): BP systolic 85–149; BP diastolic 45–76
--- NOTE | 2016-09-30 06:53 | Progress Note ---
Subjective General Pt was seen and examined urgently at RN's request, as pt suddenly became very short of breath and developed an arrythmia on telemetry. I went to the patient' s bedside immediately, and ordered a STAT EKG. Pt complained of substernal chest pressure and was in obvious severe respiratory distress. Pt denied nausea , vomiting, and diaphoresis. Physical Exam Vital Signs / I&Os Vital Signs Date Time Temp Pulse Resp B/P Pulse O2 O2 Flow FiO2 Ox Delivery Rate 09/30 0544 4.5 09/30 0512 86 35 106/55 92 09/30 0400 101/46 09/30 0300 70 11 95/51 96 09/30 0218 100/57 09/30 0218 84 25 94 Nasal 3.0 Cannula 09/30 0112 98.2 85 25 98/51 94 Nasal 3.0 Cannula 09/30 0014 98.2 78 24 94/49 93 Nasal 3.0 Cannula 09/29 2327 3.0 09/29 2316 93 34 100/46 95 Nasal 3.0 Cannula 09/29 2200 98.2 84 35 85/41 93 Nasal 4.0 Cannula 09/29 2100 83 19 103/55 98 Nasal 4.0 Cannula 09/29 2009 4.0 09/29 2008 98.2 81 29 98/49 96 Nasal 4.0 Cannula 09/29 1958 Nasal 4.0 Cannula 09/29 1900 86 31 117/71 96 Nasal 4.0 Cannula 09/29 1800 Nasal 3.0 Cannula 09/29 1800 89 30 97/39 96 Nasal 4.0 Cannula 09/29 1700 4.0 09/29 1700 96 33 104/54 95 Nasal 4.0 Cannula 09/29 1638 98.4 100 30 121/49 100 Nasal 4.0 Cannula 09/29 1244 3.0 09/29 1227 3.0 I&O 09/30 0000 09/29 1600 09/29 0800 Intake Total 50 Output Total 840 Balance -790 Other GENERAL: Pt in severe respiratory distress with intercostal and subcostal retractions HEENT: AT/NC; PERRLA, EOMI; MM Moist CARDIAC: Irregularly irregular rhythm PULM: Coarse breath sounds diffusely with diffuse wheezing bilaterally ABD: Soft, NT, ND, Positive BS in all quadrants; No hepatosplenomegaly appreciated EXT: No C/C/E in bilateral upper and lower extremity; No calve tenderness bilaterally SKIN: Warm, dry, pink, and intact NEURO: Alert and oriented x3; Following all commands PSYCH: Anxious LAB Results Laboratory Tests 09/30 09/30 09/29 09/29 09/29 0554 0405 2019 2019 2019 Chemistry Plasma Sodium (136 - 145 mmol/L) 134 Plasma Potassium (3.5 - 5.1 mmol/L) 4.0 Plasma Chloride (98 - 107 mmol/L) 103 CO2 (Enzymatic) (21 - 32 mmol/L) 24 BUN (7 - 18 mg/dL) 25 Creatinine (0.6 - 1.3 mg/dL) 0.8 Est GFR ( Amer) (mL/min) >60 Est GFR (Non-Af Amer) (mL/min) >60 Glucose (70 - 110 mg/dL) 245 Lactic Acid (0.4 - 2.0 mmol/L) 1.4 Plasma Calcium (8.5 - 10.1 mg/dL) 8.7 Plasma Magnesium (1.8 - 2.4 mg/dL) 2.1 Total Bilirubin (0.0 - 1.0 mg/dL) 0.4 AST (15 - 37 U/L) 116 ALT (12 - 78 U/L) 45 Alkaline Phosphatase (46 - 116 U/L) 127 Creatine Kinase Cancelled Troponin Cancelled C-Reactive Protein (0.0 - 0.9 mg/dL) 1.3 Total Protein (6.4 - 8.2 g/dL) 7.5 Albumin (3.3 - 5.0 g/dL) 1.8 Procalcitonin (0 - 0.5 ng/mL) <0.5 Coagulation APTT Cancelled Hematology WBC (4.5 - 11.5 K/uL) 7.5 RBC (4.50 - 5.90 M/uL) 2.41 Hgb (13.5 - 17.5 gm/dL) 8.1 Hct (41.0 - 53.0 %) 24.3 MCV (80 - 100 fL) 101 MCH (26 - 34 pg) 34 RDW (11.6 - 14.8 %) 19.0 Neut % (Auto) (50 - 75 %) 78.4 Lymph % (Auto) (25 - 40 %) 16.8 [place] % (Auto) (3 - 14 %) 4.2 Eos % (Auto) (0 - 4 %) 0 Baso % (Auto) (0 - 2 %) 0.6 Plt Count, EDTA (150 - 400 K/uL) 124 PUBS MCHC (31 - 37 g/dL) 34 09/29 09/29 09/29 1230 1230 1216 Blood Gas Sample Site RT RADIAL Total CO2 (24.0 - 30.0 mmol/L) 28.0 ABG pH (7.35 - 7.45) 7.47 ABG pCO2 at Pt Temp (35 - 45 mmHg) 36.7 ABG pO2 at Pt Temp (60.0 - 80.0 mmHg) 74.7 ABG HCO3 (20.0 - 26.0 mmol/L) 26.9 ABG O2 Sat Calc/Daniel (95.1 - 100.0 %) 95.7 ABG Base Excess (-6.0 - -6.0 mmol/L) 3.0 ABG Reduced Hgb (%) 4.2 ABG Carboxyhemoglobin (0.5 - 1.5 %) 1.6 ABG Methemoglobin (0.4 - 1.5 %) 0.1 Luis M Test YES Other Total Hgb (14.0 - 18.0 g/dL) 9.8 A-a O2 Gradient (7.0 - 14.0 mmHg) 109.5 Hgb O2 Saturation (95.0 - 100.0 %) 94.1 O2 Liters/Min (0 - 20 L/MIN) 3 Vent Mode NC FiO2 (20 - 101 %) 36 Chemistry Plasma Sodium (136 - 145 mmol/L) 130 Plasma Potassium (3.5 - 5.1 mmol/L) 5.1 Plasma Chloride (98 - 107 mmol/L) 98 CO2 (Enzymatic) (21 - 32 mmol/L) 26 BUN (7 - 18 mg/dL) 24 Creatinine (0.6 - 1.3 mg/dL) 0.7 Est GFR ( Amer) (mL/min) >60 Est GFR (Non-Af Amer) (mL/min) >60 Glucose (70 - 110 mg/dL) 187 Plasma Calcium (8.5 - 10.1 mg/dL) 10.5 Plasma Magnesium (1.8 - 2.4 mg/dL) 2.3 Total Bilirubin (0.0 - 1.0 mg/dL) 0.7 AST (15 - 37 U/L) 98 ALT (12 - 78 U/L) 52 Alkaline Phosphatase (46 - 116 U/L) 164 Creatine Kinase (24 - 260 U/L) 20 Troponin (0.00 - 1.5 ng/mL) <0.05 B-Natriuretic Peptide (5 - 100 pg/ml) 150 Total Protein (6.4 - 8.2 g/dL) 9.3 Albumin (3.3 - 5.0 g/dL) 2.3 Hematology WBC (4.5 - 11.5 K/uL) 15.6 Corrected WBC (auto) (K/uL) 15.4 RBC (4.50 - 5.90 M/uL) 3.16 Hgb (13.5 - 17.5 gm/dL) 10.6 Hct (41.0 - 53.0 %) 32.2 MCV (80 - 100 fL) 102 MCH (26 - 34 pg) 34 RDW (11.6 - 14.8 %) 20.3 Gran % 52.0 Neut % (Auto) (50 - 75 %) 71 Lymph % (Auto) (25 - 40 %) 26 [place] % (Auto) (3 - 14 %) 3 Eos % (Auto) (0 - 4 %) 0 Baso % (Auto) (0 - 2 %) 0 Band Neutrophils % (0 - 8 %) 0 Metamyelocytes % (0 - 1 %) 0 Myelocytes (0 - 1 %) 0 Nucleated RBCs (0 - 1) 1 Other Cell Type SMUDGE CELLS PRESENT Plt Count, EDTA (150 - 400 K/uL) 166 Polychromasia 1+ Poikilocytosis (manual 1+ Anisocytosis (manual) 2+ Macrocytosis (manual) 3+ PUBS MCHC (31 - 37 g/dL) 33 Microbiology Date/Time Procedure - Status Source Growth 09/29 1700 MRSA Screen - RECD NOSE Assessment and Plan Problem List 1. Acute coronary syndrome Plan - STAT Troponin and CK ordered - Pt was given SL Nitroglycerin x3 - Pt was given Metoprolol 5 mg IV x1 as he could no swallow - Pt started on Heparin drip - Pt given 325 mg PO Aspirin - Pt given 80 mg of Atorvastatin - EKG showed ST depression in multiple leads which was new compared to previous EKG - Case dicussed with on-call Sinter Machine Operator, Dr. Bangura, and he asked that pt [facility] - Pt decided he did not want to be transferred, it was explained to him he may very shortly without any interventional treatments and he states "Im ready to go to God". Pts was at bedside and agrees with patient's wishes. Dr. Bangura was called and informed of pts wishes. - Pt has now been placed on comfort measures only per his and his 's request , therefore I have ordered IV Morphine and IV Lorazepam PRN for respiratory distress and anxiety, and pt has asked that all treatments including O2 be stopped immediately. 2. Acute respiratory failure with hypoxia Plan - See above 90 minutes critical care time spent managing pts acute coronary syndrome and acute respiratory failure with hypoxemia
--- NOTE | 2016-09-30 07:59 | DIAGNOSTIC IMAGING REPORT ---
PROCEDURE: XR CHEST 1 VIEW INDICATION: Short of breath,HI TECHNIQUE: Single view chest. 05:56 hours COMPARISON: 09/29/2016, 08/29/2016 FINDINGS: Heart size and aortic contour remain stable. Prominent central pulmonary arteries. No central venous congestion. Hyperinflated, hyperlucent lungs. Dense horizontal stranding at the right lung base with small right effusion. Interval development of fairly extensive perihilar mixed interstitial and alveolar opacity in the left lung with patchy opacity at the left lung base and small left effusion. Bullous emphysematous changes seen in the apices. No fractures. IMPRESSION: 1. Significant interval increase in mixed interstitial and alveolar opacity in the left perihilar and left lower lung. Appears chronic, but worse compared to 08/29/2016. Likely edema, cannot exclude infection. 2. Persistent right base opacity, likely atelectasis and small effusion. Again chronic, relatively unchanged compared to 08/29/2016. 3. Findings superimposed on COPD. 4. Findings called to the floor.
--- NOTE | 2016-09-30 07:59 | DIAGNOSTIC IMAGING REPORT ---
PROCEDURE: XR CHEST 1 VIEW INDICATION: Short of breath,MA TECHNIQUE: Single view chest. 05:56 hours COMPARISON: 09/29/2016, 08/29/2016 FINDINGS: Heart size and aortic contour remain stable. Prominent central pulmonary arteries. No central venous congestion. Hyperinflated, hyperlucent lungs. Dense horizontal stranding at the right lung base with small right effusion. Interval development of fairly extensive perihilar mixed interstitial and alveolar opacity in the left lung with patchy opacity at the left lung base and small left effusion. Bullous emphysematous changes seen in the apices. No fractures. IMPRESSION: 1. Significant interval increase in mixed interstitial and alveolar opacity in the left perihilar and left lower lung. Appears chronic, but worse compared to 08/29/2016. Likely edema, cannot exclude infection. 2. Persistent right base opacity, likely atelectasis and small effusion. Again chronic, relatively unchanged compared to 08/29/2016. 3. Findings superimposed on COPD. 4. Findings called to the floor.
--- NOTE | 2016-10-01 07:37 | Progress Note ---
Subjective General Note Date: October 01, 2016 Admission Date: September 29, 2016 Hospital Day: 3 PCP: Anni Redman M.D. Status: Inpatient Advanced Directive: NO CODE Room: 301 Brief History: The patient is an 81-year-old white male with a significant past medical history of severe COPD, type 2 diabetes mellitus, osteoporosis, dementia, who presented to [facility] emergency department secondary to complaints of shortness of breath. [facility] ER evaluation was consistent with right lower lobe pneumonia/ exacerbation of COPD. Secondary to the above, the patient was admitted by Ricky Arredondo M.D. for further evaluation and treatment. For other history present illness, past medical history, family history, social history, review of systems, and admission physical examination please see the patient's history and physical examination and ER visit note in the patient's medical record. Subjective: The patient is unresponsive at this time. No verbal interaction. Does not follow commands Patient requests: None Medications and Allergies Medications Current Medications Sig/Rocky Start time Last Medication Dose Route Stop Time Status Admin Clarify Med Order See Dose 0830 10/01 0830 CAN Insts (1) IV 10/01 0859 Acetaminophen 650 MG Q4H PRN 09/30 2345 AC PO Dextrose/Water 1,000 ML ASDIRECTED PRN 09/30 2345 AC IV Lorazepam See Dose Q1H PRN 09/30 2345 AC 10/01 Insts (2) IV 0454 Morphine Sulfate 4 MG Q1H PRN 09/30 2345 AC 10/01 IV 0731 Morphine Sulfate See Dose Q1H PRN 09/30 2345 AC Insts (3) IV Morphine Sulfate 2 MG Q1H PRN 09/30 2200 AC 10/01 IV 0141 Vancomycin HCl See Dose DAILY 09/29 1643 CAN Insts (4) IV Dose Instructions: (1)Clarify Med Order: VANCOMYCIN TROUGH (2)Lorazepam: 0.5 - 1 MG (3)Morphine Sulfate: 6-10MG (4)Vancomycin HCl: DOSING PER PHARMACY Allergies Coded Allergies: Latex (Mild, 09/29/16) LATEX ALLERGY WHEN IN SURGERY IN 2003 Physical Exam Vital Signs / I&Os Vital Signs Date Time Temp Pulse Resp B/P Pulse O2 O2 Flow FiO2 Ox Delivery Rate 10/01 0259 78 11 85 Room Air 09/30 2230 84 14 82 Room Air 09/30 2029 Room Air 09/30 1550 75 14 85/48 82 Room Air 09/30 0830 85 22 87/45 82 Room Air I&O 10/01 0000 09/30 1600 09/30 0800 Intake Total 382 1811 Output Total 100 175 Balance 382 -100 1636 General Appearance No acute distress, no response to verbal stimuli Lungs scattered rhonchi, breath sounds equal but diminished bilaterally Cardiovascular Regular rate and rhythm, tachycardic Abdomen Normal bowel sounds Extremities No cyanosis, No clubbing, 2+ edema bilateral lower extremities Neurological No lateralizing signs, unresponsive to verbal cues Psych/Mental Status Unresponsive LAB Results None Assessment and Plan Problem List 1. Pneumonia Status Acute Onset Date Unknown Plan -Patient presented with findings of pneumonia. -The patient and his family have decided to pursue no further medical intervention. -The patient has been placed on comfort measures only with no further medical treatment other than comfort measures. -The patient's advanced directives were discussed at length with the patient and patient's family yesterday. All are in agreement that the patient should continue with comfort measures only at this time. 2. Acute respiratory failure with hypoxia Plan -The patient had findings of hypoxic respiratory failure yesterday. -Symptoms unchanged. -Comfort measures only. 3. Acute coronary syndrome Plan -The patient has findings consistent with acute coronary syndrome yesterday. -The patient and family have requested no further intervention-comfort measures only as noted above Current status: Critical, poor Anticipated discharge date: The patient will most likely not survive hospitalization. Anticipated discharge placement: Home with hospice/comfort measures Patient care time: Time spent in chart review, patient interview, physical exam, CPOE, and care documentation: 25 minutes Visit to patient today: 1 Complexity of care: Moderate E&M Codes Rounding: Inpt-Moderate/[id number]
--- NOTE | 2016-10-01 12:25 | Progress Note ---
Subjective General ADVANCED CARE PLAN History of Present Illness The patient is an 81-year-old white male with a significant past medical history of severe COPD, type 2 diabetes mellitus, osteoporosis, dementia, who presented to [facility] emergency department secondary to complaints of shortness of breath. [facility] ER evaluation was consistent with right lower lobe pneumonia/ exacerbation of COPD. Secondary to the above, the patient was admitted by Ricky Arredondo M.D. for further evaluation and treatment. For other history present illness, past medical history, family history, social history, review of systems, and admission physical examination please see the patient's history and physical examination and ER visit note in the patient's medical record. A discussion was undertaken with the patient's family regarding previous advance care arrangements/decisions. The following advanced directives were noted by the patient/patient's family and discussed with me during the patient's hospitalization. ADVANCED DIRECTIVES: 1. Living well: Yes 2. POLST: Yes 3. CODE STATUS: NO CODE-DNR/DNI 4. Durable Power Line Installer Repairer Health care: Yes 5. Donor card: No The patient and patient's family has expressed interest in not pursuing any form of resuscitation at this time. He has opted not to pursue intubation/mechanical ventilation, CPR, electrical cardioversion, or life-sustaining efforts involving drugs at the time of cardiopulmonary arrest. The patient and his family wish to pursue no further medical interventions and have opted for comfort measures only. The patient's wishes were documented in the chart and orders regarding the patient's wishes entered into the [employer] CPOE system. The "Advance Care Plan Document" was not distributed to patient. They have opted for no further medical intervention with comfort measures only as noted above. Less than 30 minutes was spent in performing the above tasks and documentation of the patient's advanced care plan.
--- NOTE | 2016-10-01 12:25 | Progress Note ---
Subjective General ADVANCED CARE PLAN History of Present Illness The patient is an 81-year-old white male with a significant past medical history of severe COPD, type 2 diabetes mellitus, osteoporosis, dementia, who presented to [facility] emergency department secondary to complaints of shortness of breath. [facility] ER evaluation was consistent with right lower lobe pneumonia/ exacerbation of COPD. Secondary to the above, the patient was admitted by Ricky Arredondo M.D. for further evaluation and treatment. For other history present illness, past medical history, family history, social history, review of systems, and admission physical examination please see the patient's history and physical examination and ER visit note in the patient's medical record. A discussion was undertaken with the patient's family regarding previous advance care arrangements/decisions. The following advanced directives were noted by the patient/patient's family and discussed with me during the patient's hospitalization. ADVANCED DIRECTIVES: 1. Living well: Yes 2. POLST: Yes 3. CODE STATUS: NO CODE-DNR/DNI 4. Durable Power Field Marketing Associate Health care: Yes 5. Donor card: No The patient and patient's family has expressed interest in not pursuing any form of resuscitation at this time. He has opted not to pursue intubation/mechanical ventilation, CPR, electrical cardioversion, or life-sustaining efforts involving drugs at the time of cardiopulmonary arrest. The patient and his family wish to pursue no further medical interventions and have opted for comfort measures only. The patient's wishes were documented in the chart and orders regarding the patient's wishes entered into the [employer] CPOE system. The "Advance Care Plan Document" was not distributed to patient. They have opted for no further medical intervention with comfort measures only as noted above. Less than 30 minutes was spent in performing the above tasks and documentation of the patient's advanced care plan.
--- NOTE | 2016-10-02 07:47 | Progress Note ---
Subjective General Note Date: October 02, 2016 Admission Date: September 29, 2016 Hospital Day: 4 PCP: Anni Redman M.D. Status: Inpatient Advanced Directive: NO CODE Room: 301 Brief History: The patient is an 81-year-old white male with a significant past medical history of severe COPD, type 2 diabetes mellitus, osteoporosis, dementia, who presented to [facility] emergency department secondary to complaints of shortness of breath. [facility] ER evaluation was consistent with right lower lobe pneumonia/ exacerbation of COPD. Secondary to the above, the patient was admitted by Ricky Arredondo M.D. for further evaluation and treatment. For other history present illness, past medical history, family history, social history, review of systems, and admission physical examination please see the patient's history and physical examination and ER visit note in the patient's medical record. Subjective: Status has deteriorated. Patient unresponsive. Patient requests: None Medications and Allergies Medications Current Medications Sig/Rocky Start time Last Medication Dose Route Stop Time Status Admin Lorazepam See Dose Q1H PRN 09/30 2345 AC 10/02 Insts (1) IV 0559 Morphine Sulfate 4 MG Q1H PRN 09/30 2345 AC 10/02 IV 0559 Morphine Sulfate See Dose Q1H PRN 09/30 2345 AC Insts (2) IV Morphine Sulfate 2 MG Q1H PRN 09/30 2200 AC 10/02 IV 0005 Dose Instructions: (1)Lorazepam: 0.5 - 1 MG (2)Morphine Sulfate: 6-10MG Allergies Coded Allergies: Latex (Mild, 09/29/16) LATEX ALLERGY WHEN IN SURGERY IN 2003 Physical Exam Vital Signs / I&Os Vital Signs Date Time Temp Pulse Resp B/P Pulse O2 O2 Flow FiO2 Ox Delivery Rate 10/01 1301 110 21 75 Room Air I&O 10/02 0000 10/01 1600 10/01 0800 Intake Total 0 Output Total 155 357 255 Balance -155 -357 -255 General Appearance Unresponsive Neurological No lateralizing signs, unresponsive Psych/Mental Status Unresponsive LAB Results Laboratory Tests 10/01 0830 Toxicology Vancomycin Trough Cancelled Assessment and Plan Problem List 1. Pneumonia Status Acute Onset Date Unknown Plan -No further evaluation -Patient's status continues to deteriorate with decreasing O2 saturation -Patient unresponsive -Comfort measures only at this time. I doubt the patient will survive the next 24 hours. 2. Acute respiratory failure with hypoxia Plan -Patient's status continues to deteriorate -Patient appears comfortable -Continue present comfort measures only therapy. 3. Acute coronary syndrome Plan -No further evaluation -See above Current status: Grave, with deteriorating status Anticipated discharge date: Today Anticipated discharge placement: Patient will most likely not survive hospitalization Patient care time: Time spent in chart review, patient interview, physical exam, CPOE, and care documentation: >30 minutes Visit to patient today: 2 Complexity of care: Low E&M Codes Discharge: Inpt >30 min spent/[id number]
--- NOTE | 2016-10-02 07:47 | Progress Note ---
Subjective General Note Date: October 02, 2016 Admission Date: September 29, 2016 Hospital Day: 4 PCP: Anni Redman M.D. Status: Inpatient Advanced Directive: NO CODE Room: 301 Brief History: The patient is an 81-year-old white male with a significant past medical history of severe COPD, type 2 diabetes mellitus, osteoporosis, dementia, who presented to [facility] emergency department secondary to complaints of shortness of breath. [facility] ER evaluation was consistent with right lower lobe pneumonia/ exacerbation of COPD. Secondary to the above, the patient was admitted by Ricky Arredondo M.D. for further evaluation and treatment. For other history present illness, past medical history, family history, social history, review of systems, and admission physical examination please see the patient's history and physical examination and ER visit note in the patient's medical record. Subjective: Status has deteriorated. Patient unresponsive. Patient requests: None Medications and Allergies Medications Current Medications Sig/Rocky Start time Last Medication Dose Route Stop Time Status Admin Lorazepam See Dose Q1H PRN 09/30 2345 AC 10/02 Insts (1) IV 0559 Morphine Sulfate 4 MG Q1H PRN 09/30 2345 AC 10/02 IV 0559 Morphine Sulfate See Dose Q1H PRN 09/30 2345 AC Insts (2) IV Morphine Sulfate 2 MG Q1H PRN 09/30 2200 AC 10/02 IV 0005 Dose Instructions: (1)Lorazepam: 0.5 - 1 MG (2)Morphine Sulfate: 6-10MG Allergies Coded Allergies: Latex (Mild, 09/29/16) LATEX ALLERGY WHEN IN SURGERY IN 2003 Physical Exam Vital Signs / I&Os Vital Signs Date Time Temp Pulse Resp B/P Pulse O2 O2 Flow FiO2 Ox Delivery Rate 10/01 1301 110 21 75 Room Air I&O 10/02 0000 10/01 1600 10/01 0800 Intake Total 0 Output Total 155 357 255 Balance -155 -357 -255 General Appearance Unresponsive Neurological No lateralizing signs, unresponsive Psych/Mental Status Unresponsive LAB Results Laboratory Tests 10/01 0830 Toxicology Vancomycin Trough Cancelled Assessment and Plan Problem List 1. Pneumonia Status Acute Onset Date Unknown Plan -No further evaluation -Patient's status continues to deteriorate with decreasing O2 saturation -Patient unresponsive -Comfort measures only at this time. I doubt the patient will survive the next 24 hours. 2. Acute respiratory failure with hypoxia Plan -Patient's status continues to deteriorate -Patient appears comfortable -Continue present comfort measures only therapy. 3. Acute coronary syndrome Plan -No further evaluation -See above Current status: Grave, with deteriorating status Anticipated discharge date: Today Anticipated discharge placement: Patient will most likely not survive hospitalization Patient care time: Time spent in chart review, patient interview, physical exam, CPOE, and care documentation: >30 minutes Visit to patient today: 2 Complexity of care: Low E&M Codes Discharge: Inpt >30 min spent/[id number]
--- NOTE | 2016-10-02 11:19 | Discharge Summary ---
Discharge Summary Report Admit Date 09/29/16 Discharge Date 10/02/16 Admission Diagnosis 1. Pneumonia 2. COPD 3. Respiratory failure Discharge Diagnosis 1. Pneumonia 2. COPD 3. Respiratory failure 4. Acute coronary syndrome Brief History The patient is an 81-year-old white male with a significant past medical history of severe COPD, type 2 diabetes mellitus, osteoporosis, dementia, who presented to [facility] emergency department secondary to complaints of shortness of breath. [facility] ER evaluation was consistent with right lower lobe pneumonia/ exacerbation of COPD. Secondary to the above, the patient was admitted by Ricky Arredondo M.D. for further evaluation and treatment. For other history present illness, past medical history, family history, social history, review of systems, and admission physical examination please see the patient's history and physical examination and ER visit note in the patient's medical record. Hospital Course The following problems and their management were noted during the patient's hospitalization: 1. Pneumonia The patient presented with findings of pneumonia. Appropriate treatment was initiated with antimicrobial therapy. The patient and family decided to pursue no further medical therapy during the patient's hospital stay. The patient wished be placed on comfort measures only. All this therapy was withdrawn per his and family's wishes. The patient succumbed to his presenting illness on October 02, 2016. He was pronounced at 10:30 AM. 2. COPD The patient has a long-standing history of COPD. This contributed to his cause of . The patient received appropriate treatment prior to being placed on comfort measures only. 3. Respiratory failure The patient had findings of respiratory failure associated with pneumonia, COPD, and ACS. As noted above the patient elected to be placed on comfort measures only with no further medical intervention. He eventually succumbed to respiratory failure related to his other medical problems. 4. Acute coronary syndrome The patient had physical findings and symptoms consistent with acute coronary syndrome. The patient's and family elected to pursue no further evaluation or therapy for this problem. The patient elected to place on comfort measures only as noted above. This contributed to the patient's as noted above. Cause of : Pneumonia Discharge Instructions/Meds The patient as expected by severity of illness and prehospitalization health status. Arrangements were made by nursing staff for transfer patient to the home. E&M Codes Discharge: Inpt >30 min spent/[id number]
--- NOTE | 2016-10-02 11:19 | Discharge Summary ---
Discharge Summary Report Admit Date 09/29/16 Discharge Date 10/02/16 Admission Diagnosis 1. Pneumonia 2. COPD 3. Respiratory failure Discharge Diagnosis 1. Pneumonia 2. COPD 3. Respiratory failure 4. Acute coronary syndrome Brief History The patient is an 81-year-old white male with a significant past medical history of severe COPD, type 2 diabetes mellitus, osteoporosis, dementia, who presented to [facility] emergency department secondary to complaints of shortness of breath. [facility] ER evaluation was consistent with right lower lobe pneumonia/ exacerbation of COPD. Secondary to the above, the patient was admitted by Ricky Arredondo M.D. for further evaluation and treatment. For other history present illness, past medical history, family history, social history, review of systems, and admission physical examination please see the patient's history and physical examination and ER visit note in the patient's medical record. Hospital Course The following problems and their management were noted during the patient's hospitalization: 1. Pneumonia The patient presented with findings of pneumonia. Appropriate treatment was initiated with antimicrobial therapy. The patient and family decided to pursue no further medical therapy during the patient's hospital stay. The patient wished be placed on comfort measures only. All this therapy was withdrawn per his and family's wishes. The patient succumbed to his presenting illness on October 02, 2016. He was pronounced at 10:30 AM. 2. COPD The patient has a long-standing history of COPD. This contributed to his cause of . The patient received appropriate treatment prior to being placed on comfort measures only. 3. Respiratory failure The patient had findings of respiratory failure associated with pneumonia, COPD, and ACS. As noted above the patient elected to be placed on comfort measures only with no further medical intervention. He eventually succumbed to respiratory failure related to his other medical problems. 4. Acute coronary syndrome The patient had physical findings and symptoms consistent with acute coronary syndrome. The patient's and family elected to pursue no further evaluation or therapy for this problem. The patient elected to place on comfort measures only as noted above. This contributed to the patient's as noted above. Cause of : Pneumonia Discharge Instructions/Meds The patient as expected by severity of illness and prehospitalization health status. Arrangements were made by nursing staff for transfer patient to the home. E&M Codes Discharge: Inpt >30 min spent/[id number]
--- NOTE | 2016-10-04 18:25 | ED MAR SUMMARY ---
..... Medication Administration Record [facility] [address] [place] [address] Patient: AILEEN CAMPBELL Visit ID: [id number] 81y, M Weight: 53.0 kg Height/Length: 72 in BMI: 15.9 ALLERGIES: None Start 13:49 09/29/2016 Sharon Lizarraga R.N. Medication Administered: ROCEPHIN [IVPB] (CEFTRIAXONE SODIUM), Dose: 2 gm IVPB over 30 minute(s), Rate: 100 mL/hr, Dispensed: 50 mL bag, Site: #1 right wrist. Medication Ordered: Rocephin IV 2 gm/50mL (NOW). Start 14:52 09/29/2016 Sharon Lizarraga R.N. Medication Administered: IV NS (SALINE), Dose: IV Fluids over 1 hour(s), Rate: 1000 mL/hr, Dispensed: 1000 mL bag, Site: #1 right wrist. Medication Ordered: IV NS : initial bolus 1000 mL (1000 mL/hr), then none - (NOW). Start 16:06 09/29/2016 Sharon Lizarraga R.N., Stop 16:30 09/29/2016 Sharon Lizarraga R.N. Medication Administered: ZOSYN [IVPB] (PIPERACILLIN SOD-TAZOBACTAM SO), Dose: 3.375 gm IVPB over 30 minute(s), Rate: 100 mL/hr, Dispensed: 50 mL bag, Site: #1 right wrist. Medication Ordered: Zosyn IV 3.375 gm/50mL (NOW).
--- NOTE | 2016-10-04 18:25 | ED MAR SUMMARY ---
..... Medication Administration Record [facility] [address] [place] [address] Patient: AILEEN CAMPBELL Visit ID: [id number] 81y, M Weight: 53.0 kg Height/Length: 72 in BMI: 15.9 ALLERGIES: None Start 13:49 09/29/2016 Sharon Lizarraga R.N. Medication Administered: ROCEPHIN [IVPB] (CEFTRIAXONE SODIUM), Dose: 2 gm IVPB over 30 minute(s), Rate: 100 mL/hr, Dispensed: 50 mL bag, Site: #1 right wrist. Medication Ordered: Rocephin IV 2 gm/50mL (NOW). Start 14:52 09/29/2016 Sharon Lizarraga R.N. Medication Administered: IV NS (SALINE), Dose: IV Fluids over 1 hour(s), Rate: 1000 mL/hr, Dispensed: 1000 mL bag, Site: #1 right wrist. Medication Ordered: IV NS : initial bolus 1000 mL (1000 mL/hr), then none - (NOW). Start 16:06 09/29/2016 Sharon Lizarraga R.N., Stop 16:30 09/29/2016 Sharon Lizarraga R.N. Medication Administered: ZOSYN [IVPB] (PIPERACILLIN SOD-TAZOBACTAM SO), Dose: 3.375 gm IVPB over 30 minute(s), Rate: 100 mL/hr, Dispensed: 50 mL bag, Site: #1 right wrist. Medication Ordered: Zosyn IV 3.375 gm/50mL (NOW).
--- NOTE | 2016-10-04 18:25 | ED MED RECONCILIATION SUMMARY ---
Patient: AILEEN CAMPBELL Medication Reconciliation Report [facility] VisitID: [id number] [address] [place] [address] 81y, M Registration Date/Time: 09/29/2016 Weight: 53.0 kg Height/Length: 72 in. BMI: 15.9 ALLERGIES: None The patient's Home Medications are listed below: THE FOLLOWING MEDICATIONS NEED TO BE RECONCILED: Advair Diskus Inhalation Amlodipine Besy-Benazepril HCl Oral 5/10 mg, daily AREDS 2 OPTH Fish Oil Insulin 5 units , 2x a day, thinks it's Novolog, not sure Potassium Chloride Oral 10 meq, daily Pravastatin Sodium Oral 20 mg, daily The source(s) of the original Home Medication information: patient's spouse The following Medications were given to the patient in the Emergency Department: Rocephin [IVPB] IVPB bolus 0, then 2 gm 100 mL/hr, administered: 09/29/2016 1:49:00 PM IV NS IV Fluids bolus 0, then 1000 mL/hr, administered: 09/29/2016 2:52:00 PM Zosyn [IVPB] IVPB bolus 0, then 3.375 gm 100 mL/hr, administered: 09/29/2016 4:06:00 PM The following Medications were prescribed to the patient: None.
--- NOTE | 2016-10-04 18:25 | ED MED RECONCILIATION SUMMARY ---
Patient: AILEEN CAMPBELL Medication Reconciliation Report [facility] VisitID: [id number] [address] [place] [address] 81y, M Registration Date/Time: 09/29/2016 Weight: 53.0 kg Height/Length: 72 in. BMI: 15.9 ALLERGIES: None The patient's Home Medications are listed below: THE FOLLOWING MEDICATIONS NEED TO BE RECONCILED: Advair Diskus Inhalation Amlodipine Besy-Benazepril HCl Oral 5/10 mg, daily AREDS 2 OPTH Fish Oil Insulin 5 units , 2x a day, thinks it's Novolog, not sure Potassium Chloride Oral 10 meq, daily Pravastatin Sodium Oral 20 mg, daily The source(s) of the original Home Medication information: patient's spouse The following Medications were given to the patient in the Emergency Department: Rocephin [IVPB] IVPB bolus 0, then 2 gm 100 mL/hr, administered: 09/29/2016 1:49:00 PM IV NS IV Fluids bolus 0, then 1000 mL/hr, administered: 09/29/2016 2:52:00 PM Zosyn [IVPB] IVPB bolus 0, then 3.375 gm 100 mL/hr, administered: 09/29/2016 4:06:00 PM The following Medications were prescribed to the patient: None.
--- NOTE | 2016-10-04 18:25 | ED DISCHARGE INSTRUCTIONS ---
Patient: AILEEN CAMPBELL General Instructions [facility] VisitID: [id number] [place] [address] 81y, M Registration Date/Time: 09/29/2016 Acute exacerbation of COPD. Bacterial pneumonia. Vital signs recorded and reviewed; empiric antibiotics given in the ED. ADDITIONAL INFORMATION Pneumonia (Adult) Pneumonia is an infection deep within the lung, in the small air sacs (alveoli). It may be due to a virus or bacteria and is usually treated with an antibiotic. Severe cases require treatment in the hospital. Milder cases can be treated at home. Symptoms usually start to improve during the first2 days of treatment. Home Care: Rest at home for the first 23 days or until you feel stronger. When resuming activity, dont let yourself become overly tired. Avoid exposure to cigarette smoke (yours or others). You may use acetaminophen (Tylenol) or ibuprofen (Motrin, Advil) to control fever or pain, unless another medicine was prescribed. [NOTE: If you have chronic liver or kidney disease or ever had a stomach ulcer or GI bleeding, talk with your doctor before using these medicines.] (Aspirin should never be used in anyone under 18 years of age who is ill with a fever. It may cause severe liver damage.) Your appetite may be poor so a light diet is fine. Keep well hydrated by drinking 68 glasses of fluids per day (water, sport drinks such as Gatorade, sodas without caffeine, juices, tea, soup, etc.). This will help loosen secretions in the lung, making it easier for you to cough up the phlegm (sputum). If you also have heart or kidney disease, check with your doctor before you drink extra amounts of fluids. Finish all antibiotic medicine prescribed, even if you are feeling better after a few days. Follow Up with your doctor in the next 23 days (or as advised) to be sure you are responding properly to the medicine. [NOTE: If you are age 65 or older, or if you have chronic lung disease (asthma, emphysema or COPD), we recommendthe pneumococcal vaccination and a yearlyinfluenzavaccination(flu-shot) every . Ask your doctor about this.] Get Prompt Medical Attention if any of the following occur: Not getting better within the first 48 hours of treatment Increasing shortness of breath or rapid breathing (over 25 breaths/minute) Coughing up blood or increasing chest pain with breathing Fever of 100.4F (38C) oral or higher, not better with fever medication Increasing weakness, dizziness or fainting Increasing thirst or dry mouth Sinus pain, headache or a stiff neck Chest pain not caused by coughing You have been given the following additional information: Pneumonia (Adult) (Electronically signed by Lupe Dial MD 10/04/2016 18:25)
== END 2016-10-02 10:30 | disposition expired | DRG 190 ==
LOC: ED SRH 11:58 → TRANS SRH 14:17 → CC SRH 16:20
PROVIDERS: ADMIT Emergency Medicine
DX: J44.0 Chronic obstructive pulmonary disease with (acute) lower respiratory infection (principal); J15.9 Unspecified bacterial pneumonia; J44.1 Chronic obstructive pulmonary disease with (acute) exacerbation; I24.9 Acute ischemic heart disease, unspecified; J96.01 Acute respiratory failure with hypoxia; E86.0 Dehydration; E11.9 Type 2 diabetes mellitus without complications; I10 Essential (primary) hypertension; F03.90 Unspecified dementia, unspecified severity, without behavioral disturbance, psychotic disturbance, mood disturbance, and anxiety; L89.150 Pressure ulcer of sacral region, unstageable; Z99.81 Dependence on supplemental oxygen; Z79.4 Long term (current) use of insulin; Z87.891 Personal history of nicotine dependence; Z87.01 Personal history of pneumonia (recurrent)
CPT/HCPCS: 83747; 83921; 85241; 90074; 90098; 90100; 90616; 90934; 91320; 91585; 91643; 91672; 92031; 92132; 92610; 92720; 93004; 95059